=== PATIENT | female | born 1990 | race American Indian/Alaskan Native ===

== ENCOUNTER 2017-01-08 18:03 | Inpatient (IN) | payer MEDICAID ==
--- NOTE | 2017-01-08 19:12 | EDM.PDOC ---
ED HPI GENERAL MEDICAL PROBLEM Lower Back Pain Score (Numeric/FACES): 6 <Ervin Andrew - Last Filed: 01/08/17 19:19> <Juan Elias - Last Filed: 01/08/17 22:05> - General Chief Complaint: Drug or Alcohol Abuse Stated Complaint: [facility] Time Seen by Provider: 01/08/17 18:07 - History of Present Illness INITIAL COMMENTS - FREE TEXT/NARRATIVE: 26-year-old female brought in by EMS with combative behavior and hallucinations patient is much more responsive now than she was to the second EMS crew the assisted in her delivery to the hospital. They found the patient hyperventilating somewhat not responsive Selene Coma Score of on her and found to be 10 she was given a milligram of Ativan in albeit was somewhat sleepy did become more responsive and more communicative and according to EMS at the time of arrival to the emergency room is more talkative than she has been the entire trip here. Transport was started by the [facility] and then intercepted with [facility]. Patient admits to taking 5 Percocet around 3:00 this afternoon and then snorting some cocaine she denies any suicidal wishes or thoughts at this point however is having some auditory hallucinations (Ervin Andrew) - Related Data Allergies Allergy/AdvReac Type Severity Reaction Status Date / Time No Known Allergies Allergy Verified 01/08/17 18:09 Home Meds: Home Meds Vit No.130/Iron/FA [ Tablet] 1 each PO DAILY 07/18/15 [History] Acetaminophen/oxyCODONE [Percocet 325-5 MG] 2 tab PO Q4H PRN #30 tablet [Rx] Docusate Sodium [Colace] 100 mg PO Q12H PRN #30 cap 07/20/15 [Rx] Ferrous Sulfate 325 mg PO BRK tablet 07/20/15 [Rx] Ibuprofen [Motrin] 600 mg PO Q4H PRN #30 tablet 07/20/15 [Rx] Past Medical History Other Genitourinary History: UTI 2 weeks ago. Treated with antibiotics. [employer] History: Reports: Other OB/BYN History: x4 <Ervin Andrew - Last Filed: 01/08/17 19:19> Social & Family History - Tobacco Use Smoking Status *Q: Current Every Day Smoker Years of Tobacco use: 15 Packs/Tins Daily: 1 - Caffeine Use Caffeine Use: Reports: Energy Drinks, Soda - Alcohol Use Days Per Week of Alcohol Use: 7 Number of Drinks Per Day: 3 Total Drinks Per Week: 21 - Recreational Drug Use Recreational Drug Use: Yes Drug Use in Last 12 Months: Yes Recreational Drug Type: Reports: Marijuana/Hashish, Methamphetamine, Oxycodone Other Recreational Drug Type: states "Whatever is around" Recreational Drug Use Frequency: Daily <Ervin Andrew - Last Filed: 01/08/17 19:19> ED ROS GENERAL - Review of Systems Review Of Systems: See Below Constitutional: Denies: Fever, Chills HEENT: Reports: No Symptoms Respiratory: Reports: No Symptoms Cardiovascular: Reports: No Symptoms GI/Abdominal: Reports: No Symptoms : Reports: No Symptoms Musculoskeletal: Reports: No Symptoms <Ervin Andrew - Last Filed: 01/08/17 19:19> - Physical Exam Exam: See Below Exam Limited By: Other (the extent of her drug effect is unclear at this time) General Appearance: Alert, No Apparent Distress, Other (she is hearing voices otherwise is cooperative train of thought is a little jumbled.) Eye Exam: Bilateral Eye: EOMI, Normal Inspection, PERRL (she is perhaps a little sluggish) Ears: Normal External Exam, Normal Canal, Hearing Grossly Normal, Normal TMs Nose: Normal Inspection, Normal Mucosa, No Blood Throat/Mouth: Normal Inspection, Normal Lips, Normal Oropharynx, No Airway Compromise Head Exam: Atraumatic, Normocephalic Neck: Normal Inspection, Supple, Non-Tender, Full Range of Motion. No: Lymphadenopathy (L), Lymphadenopathy (R) Respiratory/Chest: No Respiratory Distress, Lungs Clear, Normal Breath Sounds Cardiovascular: Regular Rate, Rhythm, No Edema, No Murmur GI/Abdominal: Normal Bowel Sounds, Soft, Non-Tender, No Organomegaly, No Distention, No Abnormal Bruit, No Mass Neuro Exam (Abbreviated): Alert, CN II-XII Intact. No: Normal Cognition, Sensory/Motor Deficit Back Exam: Normal Inspection. No: CVA Tenderness (L), CVA Tenderness (R) Extremities: Normal Inspection, No Pedal Edema Psychiatric: Other (patient denies suicidal thoughts or wishes she is still under the effect of some drugs) <Ervin Andrew - Last Filed: 01/08/17 19:19> EKG INTERPRETATION EKG Date: 01/08/17 Time: 18:06 Rhythm: NSR Rate (beats/min): 92 [place]: normal P-wave: present QRS: normal ST-T: normal QT: normal Comparison: NA - no prior EKG <Juan Elias - Last Filed: 01/08/17 22:05> Course <Ervin Andrew - Last Filed: 01/08/17 19:19> <Juan Elias - Last Filed: 01/08/17 22:05> - Vital Signs Last Recorded V/S: Last Vital Signs Temp 37.2 C 01/08/17 18:05 Pulse 88 01/08/17 18:05 Resp 18 01/08/17 18:05 BP Pulse Ox 98 01/08/17 18:05 (Ervin Andrew) (Juan Elias) - Orders/Labs/Meds Orders: Active Orders 24 hr Category Date Time Status EKG 12 Lead [EKG Documentation Completion] [RC] STAT Care 01/08/17 18:05 Active (Ervin Andrew) (Juan Elias) Labs: Laboratory Tests 01/08/17 01/08/17 01/08/17 Range/Units 18:10 18:10 18:10 WBC 8.46 (3.98-10.04) K/mm3 RBC 4.61 (3.98-5.22) M/mm3 Hgb 12.7 (11.2-15.7) gm/L Hct 38.0 (34.1-44.9) % MCV 82.4 (79.4-94.8) fl MCH 27.5 (25.6-32.2) pg MCHC 33.4 (32.2-35.5) g/dl RDW Std Deviation 47.2 H (36.4-46.3) fL Plt Count 187 (182-369) K/mm3 MPV 12.4 H (9.4-12.3) fl Neutrophils % (Manual) 72 H (40-60) % Band Neutrophils % 0 (0-10) % Lymphocytes % (Manual) 23 (20-40) % Atypical Lymphs % 0 % Monocytes % (Manual) 5 (2-10) % Eosinophils % (Manual) 0 L (0.7-5.8) % Basophils % (Manual) 0 L (0.1-1.2) Platelet Estimate Adequate Plt Morphology Comment Normal RBC Morph Comment Normal Puncture Site ABG pH (7.35-7.45) ABG pCO2 (35.0-45.0) mmHg ABG pO2 (80.0-100.0) mmHg ABG HCO3 (22.0-26.0) meq/L ABG O2 Saturation (96.0-97.0) % ABG Base Excess (-2-2.0) Alvaro Test A-a Gradient mmHg FiO2 (21.00-100.00) % Sodium 138 (136-145) mEq/L Potassium 3.5 (3.5-5.1) mEq/L Chloride 104 (98-107) mEq/L Carbon Dioxide 21 (21-32) mEq/L Anion Gap 16.5 H (5-15) BUN 17 (7-18) mg/dL Creatinine 0.8 (0.55-1.02) mg/dL Est Cr Clr Drug Dosing 94.21 mL/min Estimated GFR (MDRD) > 60 (>60) mL/min BUN/Creatinine Ratio 21.3 H (14-18) Glucose 120 H (74-106) mg/dL Calcium 9.3 (8.5-10.1) mg/dL Total Bilirubin 1.0 (0.2-1.0) mg/dL AST 64 H (15-37) U/L ALT 110 H (14-59) U/L Alkaline Phosphatase 93 (46-116) U/L Total Protein 8.2 (6.4-8.2) g/dl Albumin 4.2 (3.4-5.0) g/dl Globulin 4.0 gm/dL Albumin/Globulin Ratio 1.1 (1-2) TSH 3rd Generation 0.841 (0.358-3.74) uIU/mL Urine Color (Yellow) Urine Appearance (Clear) Urine pH (5.0-8.0) Ur Specific [place] (1.005-1.030) Urine Protein (Negative) Urine Glucose (UA) (Negative) Urine Ketones (Negative) Urine Occult Blood (Negative) Urine Nitrite (Negative) Urine Bilirubin (Negative) Urine Urobilinogen (0.2-1.0) Ur Leukocyte Esterase (Negative) Urine RBC (0-5) /hpf Urine WBC (0-5) /hpf Ur Epithelial Cells Ur Squamous Epith Cells (0-5) /hpf Urine Bacteria (FEW) /hpf Urine Mucus (FEW) /hpf Urine Trichomonas Urine HCG, Qual (NEGATIVE) Salicylates 1.3 L (2.8-20) mg/dL Urine Opiates Screen (NEGATIVE) Ur Buprenorphine Scrn (NEGATIVE) Ur Oxycodone Screen (NEGATIVE) Urine Methadone Screen (NEGATIVE) Ur Propoxyphene Screen (NEGATIVE) Acetaminophen 0 L (10-30) ug/mL Ur Barbiturates Screen (NEGATIVE) Ur Tricyclics Screen (NEGATIVE) Ur Phencyclidine Scrn (NEGATIVE) Ur Amphetamine Screen (NEGATIVE) U Methamphetamines Scrn (NEGATIVE) U Benzodiazepines Scrn (NEGATIVE) U Cocaine Metab Screen (NEGATIVE) U Marijuana (THC) Screen (NEGATIVE) Ethyl Alcohol 0.00 (0.00) gm% 01/08/17 01/08/17 01/08/17 Range/Units 18:45 18:45 18:45 WBC (3.98-10.04) K/mm3 RBC (3.98-5.22) M/mm3 Hgb (11.2-15.7) gm/L Hct (34.1-44.9) % MCV (79.4-94.8) fl MCH (25.6-32.2) pg MCHC (32.2-35.5) g/dl RDW Std Deviation (36.4-46.3) fL Plt Count (182-369) K/mm3 MPV (9.4-12.3) fl Neutrophils % (Manual) (40-60) % Band Neutrophils % (0-10) % Lymphocytes % (Manual) (20-40) % Atypical Lymphs % % Monocytes % (Manual) (2-10) % Eosinophils % (Manual) (0.7-5.8) % Basophils % (Manual) (0.1-1.2) Platelet Estimate Plt Morphology Comment RBC Morph Comment Puncture Site ABG pH (7.35-7.45) ABG pCO2 (35.0-45.0) mmHg ABG pO2 (80.0-100.0) mmHg ABG HCO3 (22.0-26.0) meq/L ABG O2 Saturation (96.0-97.0) % ABG Base Excess (-2-2.0) Alvaro Test A-a Gradient mmHg FiO2 (21.00-100.00) % Sodium (136-145) mEq/L Potassium (3.5-5.1) mEq/L Chloride (98-107) mEq/L Carbon Dioxide (21-32) mEq/L Anion Gap (5-15) BUN (7-18) mg/dL Creatinine (0.55-1.02) mg/dL Est Cr Clr Drug Dosing mL/min Estimated GFR (MDRD) (>60) mL/min BUN/Creatinine Ratio (14-18) Glucose (74-106) mg/dL Calcium (8.5-10.1) mg/dL Total Bilirubin (0.2-1.0) mg/dL AST (15-37) U/L ALT (14-59) U/L Alkaline Phosphatase (46-116) U/L Total Protein (6.4-8.2) g/dl Albumin (3.4-5.0) g/dl Globulin gm/dL Albumin/Globulin Ratio (1-2) TSH 3rd Generation (0.358-3.74) uIU/mL Urine Color Yellow (Yellow) Urine Appearance Slt cloudy H (Clear) Urine pH 6.0 (5.0-8.0) Ur Specific [place] 1.025 (1.005-1.030) Urine Protein 1+ H (Negative) Urine Glucose (UA) Negative (Negative) Urine Ketones 2+ H (Negative) Urine Occult Blood 2+ H (Negative) Urine Nitrite Negative (Negative) Urine Bilirubin Negative (Negative) Urine Urobilinogen 0.2 (0.2-1.0) Ur Leukocyte Esterase Trace H (Negative) Urine RBC 40-50 H (0-5) /hpf Urine WBC 5-10 H (0-5) /hpf Ur Epithelial Cells Not Reportable Ur Squamous Epith Cells 10-20 H (0-5) /hpf Urine Bacteria Moderate H (FEW) /hpf Urine Mucus Few (FEW) /hpf Urine Trichomonas Few Urine HCG, Qual Negative (NEGATIVE) Salicylates (2.8-20) mg/dL Urine Opiates Screen Negative (NEGATIVE) Ur Buprenorphine Scrn Negative (NEGATIVE) Ur Oxycodone Screen Negative (NEGATIVE) Urine Methadone Screen Negative (NEGATIVE) Ur Propoxyphene Screen Negative (NEGATIVE) Acetaminophen (10-30) ug/mL Ur Barbiturates Screen Negative (NEGATIVE) Ur Tricyclics Screen Negative (NEGATIVE) Ur Phencyclidine Scrn Negative (NEGATIVE) Ur Amphetamine Screen Presumptive positive H (NEGATIVE) U Methamphetamines Scrn Presumptive positive H (NEGATIVE) U Benzodiazepines Scrn Negative (NEGATIVE) U Cocaine Metab Screen Negative (NEGATIVE) U Marijuana (THC) Screen Presumptive positive H (NEGATIVE) Ethyl Alcohol (0.00) gm% 01/08/17 Range/Units 18:54 WBC (3.98-10.04) K/mm3 RBC (3.98-5.22) M/mm3 Hgb (11.2-15.7) gm/L Hct (34.1-44.9) % MCV (79.4-94.8) fl MCH (25.6-32.2) pg MCHC (32.2-35.5) g/dl RDW Std Deviation (36.4-46.3) fL Plt Count (182-369) K/mm3 MPV (9.4-12.3) fl Neutrophils % (Manual) (40-60) % Band Neutrophils % (0-10) % Lymphocytes % (Manual) (20-40) % Atypical Lymphs % % Monocytes % (Manual) (2-10) % Eosinophils % (Manual) (0.7-5.8) % Basophils % (Manual) (0.1-1.2) Platelet Estimate Plt Morphology Comment RBC Morph Comment Puncture Site Rt radial ABG pH 7.42 (7.35-7.45) ABG pCO2 32.2 L (35.0-45.0) mmHg ABG pO2 81.0 (80.0-100.0) mmHg ABG HCO3 20.3 L (22.0-26.0) meq/L ABG O2 Saturation 97.7 H (96.0-97.0) % ABG Base Excess -2.9 L (-2-2.0) Alvaro Test Positive A-a Gradient 13 mmHg FiO2 21.00 (21.00-100.00) % Sodium (136-145) mEq/L Potassium (3.5-5.1) mEq/L Chloride (98-107) mEq/L Carbon Dioxide (21-32) mEq/L Anion Gap (5-15) BUN (7-18) mg/dL Creatinine (0.55-1.02) mg/dL Est Cr Clr Drug Dosing mL/min Estimated GFR (MDRD) (>60) mL/min BUN/Creatinine Ratio (14-18) Glucose (74-106) mg/dL Calcium (8.5-10.1) mg/dL Total Bilirubin (0.2-1.0) mg/dL AST (15-37) U/L ALT (14-59) U/L Alkaline Phosphatase (46-116) U/L Total Protein (6.4-8.2) g/dl Albumin (3.4-5.0) g/dl Globulin gm/dL Albumin/Globulin Ratio (1-2) TSH 3rd Generation (0.358-3.74) uIU/mL Urine Color (Yellow) Urine Appearance (Clear) Urine pH (5.0-8.0) Ur Specific [place] (1.005-1.030) Urine Protein (Negative) Urine Glucose (UA) (Negative) Urine Ketones (Negative) Urine Occult Blood (Negative) Urine Nitrite (Negative) Urine Bilirubin (Negative) Urine Urobilinogen (0.2-1.0) Ur Leukocyte Esterase (Negative) Urine RBC (0-5) /hpf Urine WBC (0-5) /hpf Ur Epithelial Cells Ur Squamous Epith Cells (0-5) /hpf Urine Bacteria (FEW) /hpf Urine Mucus (FEW) /hpf Urine Trichomonas Urine HCG, Qual (NEGATIVE) Salicylates (2.8-20) mg/dL Urine Opiates Screen (NEGATIVE) Ur Buprenorphine Scrn (NEGATIVE) Ur Oxycodone Screen (NEGATIVE) Urine Methadone Screen (NEGATIVE) Ur Propoxyphene Screen (NEGATIVE) Acetaminophen (10-30) ug/mL Ur Barbiturates Screen (NEGATIVE) Ur Tricyclics Screen (NEGATIVE) Ur Phencyclidine Scrn (NEGATIVE) Ur Amphetamine Screen (NEGATIVE) U Methamphetamines Scrn (NEGATIVE) U Benzodiazepines Scrn (NEGATIVE) U Cocaine Metab Screen (NEGATIVE) U Marijuana (THC) Screen (NEGATIVE) Ethyl Alcohol (0.00) gm% (Ervin Andrew) (Juan Elias) - Radiology Interpretation Free Text/Narrative:: CT of the head without contrast is read by Dr. Haywood as: 1. Nothing acute is identified on noncontrast head CT study. (Juan Elias) - Re-Assessments/Exams Free Text/Narrative Re-Assessment/Exam: 01/08/17 19:19 labs ordered work up initiated at this point it is change of shift further evaluation and disposition per Dr. Elias (Ervin Andrew) Free Text/Narrative Re-Assessment/Exam: 01/08/17 21:05 I evaluated the patient. She is calm, lucid, and able to provide a meaningful history, however, is still hearing her father and some other family members argue in the room next door when, in fact, they are not here. She states that she snorted one Percocet and smoked one Percocet yesterday, then smoked two Percocets and injected methamphetamine around 13:00 today. She admits that she sometimes snorts methamphetamine as well, but not today. I believe it is most likely that the patient has auditory hallucinations because of the methamphetamine, not psychosis, and I would expect that her hallucinations will have resolved by the morning. I don't believe she is fit to discharge home at this time - I am recommending observation overnight, then a visit by pediatric social worker in the morning, as they may be able to facilitate getting the patient into either inpatient or outpatient drug treatment. 01/08/17 21:[address] Burden at 21:30. Provided we have the staffing to watch the patient, he agrees to place the patient observation. (Juan Elias) Departure <Ervin Andrew - Last Filed: 01/08/17 19:19> - Departure Time of Disposition: 21:59 Condition: fair <Juan Elias - Last Filed: 01/08/17 22:05> - Departure Disposition: Refer to Observation Clinical Impression: Methamphetamine abuse, Opioid abuse, Polysubstance abuse, Verbal auditory hallucinations
[2017-01-08 19:44] LABS: ACETAMINOPHEN 0 ug/mL (10-30)
--- NOTE | 2017-01-08 19:57 | CT ---
Head CT Technique: Multiple axial sections through the brain were obtained. Intravenous contrast was not utilized. Comparison: No previous intracranial imaging is available. Findings: Ventricles along with basal cisterns and sulci over the convexities are within normal limits for the patient's age. No abnormal parenchymal densities are seen. No evidence of intracranial hemorrhage. No midline shift or mass effect is seen. Bone window settings shows no acute calvarial abnormality. Visualized sinuses are clear. Impression: 1. Nothing acute is identified on noncontrast head CT study. Diagnostic code #1
--- NOTE | 2017-01-08 21:52 | PCM.HP ---
H&P History of Present Illness - General Date of Service: 01/08/17 Admit Problem/Dx: Auditory Hallucinations and Substance Abuse Source of Information: Patient, Old Records, Provider, RN Notes Reviewed History Limitations: Reports: Altered Mental Status - History of Present Illness Initial Comments - Free Text/Narative: This is a 26 yo female with no significant past medical hx/o who comes in for evaluation of combative behavior and hallucinations. Patient carries a hx/o chronic substance abuse with methamphetamine and Marijuana. En route to ED, she was given ativan by EMS and she became more responsive and talkative per ED notes. Patient admits to taking percocet and snorting cocaine. Her initial ED work up shows an unremarkable CBC. Her chemistry is significant of AG 16.5, BS 120, AST 64, and ALT 110. UA is not impressive to suggest UTI. She is negative for screening. Her UDS is pos for Amphethamine/ Methamphetamine and THC. Her BRYSON level is 0. Head CT scan shows no acute abnormal findings. Patient is being admitted for Hallucinations and Substance Abuse. Lower Back Pain Score (Numeric/FACES): 6 - Related Data Allergies/Adverse Reactions: Allergies Allergy/AdvReac Type Severity Reaction Status Date / Time No Known Allergies Allergy Verified 01/08/17 18:09 Home Medications: Home Meds Vit No.130/Iron/FA [ Tablet] 1 each PO DAILY 07/18/15 [History] Acetaminophen/oxyCODONE [Percocet 325-5 MG] 2 tab PO Q4H PRN #30 tablet [Rx] Docusate Sodium [Colace] 100 mg PO Q12H PRN #30 cap 07/20/15 [Rx] Ferrous Sulfate 325 mg PO BRK tablet 07/20/15 [Rx] Ibuprofen [Motrin] 600 mg PO Q4H PRN #30 tablet 07/20/15 [Rx] Past Medical History Other Genitourinary History: UTI 2 weeks ago. Treated with antibiotics. 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: Other OB/BYN History: x4 Social & Family History - Tobacco Use Smoking Status *Q: Current Every Day Smoker Years of Tobacco use: 15 Packs/Tins Daily: 1 - Caffeine Use Caffeine Use: Reports: Energy Drinks, Soda - Alcohol Use Days Per Week of Alcohol Use: 7 Number of Drinks Per Day: 3 Total Drinks Per Week: 21 - Recreational Drug Use Recreational Drug Use: Yes Drug Use in Last 12 Months: Yes Recreational Drug Type: Reports: Marijuana/Hashish, Methamphetamine, Oxycodone Other Recreational Drug Type: states "Whatever is around" Recreational Drug Use Frequency: Daily H&P Review of Systems - Review of Systems: Review Of Systems: See Below General: Denies: Fever, Chills, Malaise, Weakness, Fatigue HEENT: Reports: No Symptoms Pulmonary: Denies: Shortness of Breath, Wheezing, Pleuritic Chest Pain, Sputum Cardiovascular: Denies: Chest Pain, Palpitations, Dyspnea on Exertion Gastrointestinal: Denies: Abdominal Pain, Nausea Genitourinary: Reports: No Symptoms Musculoskeletal: Reports: No Symptoms Skin: Denies: Cyanosis, Jaundice, Pruritis, Rash, Wound Psychiatric: Reports: Confusion, Suicidal Ideation, Hallucinations (Auditory) Neurological: Denies: Dizziness, Gait Disturbance Hematologic/Lymphatic: Reports: No Symptoms Immunologic: Reports: No Symptoms Exam - Exam Exam: See Below - Vital Signs Vital Signs: Last Vital Signs Temp 37.2 C 01/08/17 18:05 Pulse 88 01/08/17 18:05 Resp 18 01/08/17 18:05 BP Pulse Ox 98 01/08/17 18:05 Weight: 75.75 kg - Exam General: Alert, Cooperative HEENT: Conjunctiva Clear, EACs Clear, EOMI, Hearing Intact, Mucosa Moist & Hines , Nares Patent, Posterior Pharynx Clear, Pupils Equal Neck: Supple, Trachea Midline, Carotid Bruit Lungs: Clear to Auscultation Cardiovascular: Regular Rate, Regular Rhythm Abdomen: Normal Bowel Sounds, Soft. No: Organomegaly, Tenderness (Female) Exam: Deferred Rectal (Female) Exam: Deferred Back Exam: Normal Inspection, Decreased Range of Motion Extremities: Normal Inspection, Normal Pulses Peripheral Pulses: 3+: Posterior Tibial (L), Posterior Tibial (R), Dorsalis Pedis (L), Dorsalis Pedis (R) Skin: Warm, Dry, Intact Neuro Extensive - Mental Status: Oriented x3, Normal Cognition, Memory Intact Neuro Extensive - Motor, Sensory, Reflexes: CN II-XII Intact, Normal Gait Psychiatric: Alert, Normal Affect, Anxious, Hallucinations (hearing voices ) - Patient Data Lab Results last 24 hrs: Laboratory Results - last 24 hr 05/01/08/17 01/08/17 Range/Units 18:10 18:10 18:10 WBC 8.46 (3.98-10.04) K/mm3 RBC 4.61 (3.98-5.22) M/mm3 Hgb 12.7 (11.2-15.7) gm/L Hct 38.0 (34.1-44.9) % MCV 82.4 (79.4-94.8) fl MCH 27.5 (25.6-32.2) pg MCHC 33.4 (32.2-35.5) g/dl RDW Std Deviation 47.2 H (36.4-46.3) fL Plt Count 187 (182-369) K/mm3 MPV 12.4 H (9.4-12.3) fl Neutrophils % (Manual) 72 H (40-60) % Band Neutrophils % 0 (0-10) % Lymphocytes % (Manual) 23 (20-40) % Atypical Lymphs % 0 % Monocytes % (Manual) 5 (2-10) % Eosinophils % (Manual) 0 L (0.7-5.8) % Basophils % (Manual) 0 L (0.1-1.2) Platelet Estimate Adequate Plt Morphology Comment Normal RBC Morph Comment Normal Puncture Site ABG pH (7.35-7.45) ABG pCO2 (35.0-45.0) mmHg ABG pO2 (80.0-100.0) mmHg ABG HCO3 (22.0-26.0) meq/L ABG O2 Saturation (96.0-97.0) % ABG Base Excess (-2-2.0) Alvaro Test A-a Gradient mmHg FiO2 (21.00-100.00) % Sodium 138 (136-145) mEq/L Potassium 3.5 (3.5-5.1) mEq/L Chloride 104 (98-107) mEq/L Carbon Dioxide 21 (21-32) mEq/L Anion Gap 16.5 H (5-15) BUN 17 (7-18) mg/dL Creatinine 0.8 (0.55-1.02) mg/dL Est Cr Clr Drug Dosing 94.21 mL/min Estimated GFR (MDRD) > 60 (>60) mL/min BUN/Creatinine Ratio 21.3 H (14-18) Glucose 120 H (74-106) mg/dL Calcium 9.3 (8.5-10.1) mg/dL Total Bilirubin 1.0 (0.2-1.0) mg/dL AST 64 H (15-37) U/L ALT 110 H (14-59) U/L Alkaline Phosphatase 93 (46-116) U/L Total Protein 8.2 (6.4-8.2) g/dl Albumin 4.2 (3.4-5.0) g/dl Globulin 4.0 gm/dL Albumin/Globulin Ratio 1.1 (1-2) TSH 3rd Generation 0.841 (0.358-3.74) uIU/mL Urine Color (Yellow) Urine Appearance (Clear) Urine pH (5.0-8.0) Ur Specific [place] (1.005-1.030) Urine Protein (Negative) Urine Glucose (UA) (Negative) Urine Ketones (Negative) Urine Occult Blood (Negative) Urine Nitrite (Negative) Urine Bilirubin (Negative) Urine Urobilinogen (0.2-1.0) Ur Leukocyte Esterase (Negative) Urine RBC (0-5) /hpf Urine WBC (0-5) /hpf Ur Epithelial Cells Ur Squamous Epith Cells (0-5) /hpf Urine Bacteria (FEW) /hpf Urine Mucus (FEW) /hpf Urine Trichomonas Urine HCG, Qual (NEGATIVE) Salicylates 1.3 L (2.8-20) mg/dL Urine Opiates Screen (NEGATIVE) Ur Buprenorphine Scrn (NEGATIVE) Ur Oxycodone Screen (NEGATIVE) Urine Methadone Screen (NEGATIVE) Ur Propoxyphene Screen (NEGATIVE) Acetaminophen 0 L (10-30) ug/mL Ur Barbiturates Screen (NEGATIVE) Ur Tricyclics Screen (NEGATIVE) Ur Phencyclidine Scrn (NEGATIVE) Ur Amphetamine Screen (NEGATIVE) U Methamphetamines Scrn (NEGATIVE) U Benzodiazepines Scrn (NEGATIVE) U Cocaine Metab Screen (NEGATIVE) U Marijuana (THC) Screen (NEGATIVE) Ethyl Alcohol 0.00 (0.00) gm% 01/08/17 01/08/17 01/08/17 Range/Units 18:45 18:45 18:45 WBC (3.98-10.04) K/mm3 RBC (3.98-5.22) M/mm3 Hgb (11.2-15.7) gm/L Hct (34.1-44.9) % MCV (79.4-94.8) fl MCH (25.6-32.2) pg MCHC (32.2-35.5) g/dl RDW Std Deviation (36.4-46.3) fL Plt Count (182-369) K/mm3 MPV (9.4-12.3) fl Neutrophils % (Manual) (40-60) % Band Neutrophils % (0-10) % Lymphocytes % (Manual) (20-40) % Atypical Lymphs % % Monocytes % (Manual) (2-10) % Eosinophils % (Manual) (0.7-5.8) % Basophils % (Manual) (0.1-1.2) Platelet Estimate Plt Morphology Comment RBC Morph Comment Puncture Site ABG pH (7.35-7.45) ABG pCO2 (35.0-45.0) mmHg ABG pO2 (80.0-100.0) mmHg ABG HCO3 (22.0-26.0) meq/L ABG O2 Saturation (96.0-97.0) % ABG Base Excess (-2-2.0) Alvaro Test A-a Gradient mmHg FiO2 (21.00-100.00) % Sodium (136-145) mEq/L Potassium (3.5-5.1) mEq/L Chloride (98-107) mEq/L Carbon Dioxide (21-32) mEq/L Anion Gap (5-15) BUN (7-18) mg/dL Creatinine (0.55-1.02) mg/dL Est Cr Clr Drug Dosing mL/min Estimated GFR (MDRD) (>60) mL/min BUN/Creatinine Ratio (14-18) Glucose (74-106) mg/dL Calcium (8.5-10.1) mg/dL Total Bilirubin (0.2-1.0) mg/dL AST (15-37) U/L ALT (14-59) U/L Alkaline Phosphatase (46-116) U/L Total Protein (6.4-8.2) g/dl Albumin (3.4-5.0) g/dl Globulin gm/dL Albumin/Globulin Ratio (1-2) TSH 3rd Generation (0.358-3.74) uIU/mL Urine Color Yellow (Yellow) Urine Appearance Slt cloudy H (Clear) Urine pH 6.0 (5.0-8.0) Ur Specific [place] 1.025 (1.005-1.030) Urine Protein 1+ H (Negative) Urine Glucose (UA) Negative (Negative) Urine Ketones 2+ H (Negative) Urine Occult Blood 2+ H (Negative) Urine Nitrite Negative (Negative) Urine Bilirubin Negative (Negative) Urine Urobilinogen 0.2 (0.2-1.0) Ur Leukocyte Esterase Trace H (Negative) Urine RBC 40-50 H (0-5) /hpf Urine WBC 5-10 H (0-5) /hpf Ur Epithelial Cells Not Reportable Ur Squamous Epith Cells 10-20 H (0-5) /hpf Urine Bacteria Moderate H (FEW) /hpf Urine Mucus Few (FEW) /hpf Urine Trichomonas Few Urine HCG, Qual Negative (NEGATIVE) Salicylates (2.8-20) mg/dL Urine Opiates Screen Negative (NEGATIVE) Ur Buprenorphine Scrn Negative (NEGATIVE) Ur Oxycodone Screen Negative (NEGATIVE) Urine Methadone Screen Negative (NEGATIVE) Ur Propoxyphene Screen Negative (NEGATIVE) Acetaminophen (10-30) ug/mL Ur Barbiturates Screen Negative (NEGATIVE) Ur Tricyclics Screen Negative (NEGATIVE) Ur Phencyclidine Scrn Negative (NEGATIVE) Ur Amphetamine Screen Presumptive positive H (NEGATIVE) U Methamphetamines Scrn Presumptive positive H (NEGATIVE) U Benzodiazepines Scrn Negative (NEGATIVE) U Cocaine Metab Screen Negative (NEGATIVE) U Marijuana (THC) Screen Presumptive positive H (NEGATIVE) Ethyl Alcohol (0.00) gm% 01/08/17 Range/Units 18:54 WBC (3.98-10.04) K/mm3 RBC (3.98-5.22) M/mm3 Hgb (11.2-15.7) gm/L Hct (34.1-44.9) % MCV (79.4-94.8) fl MCH (25.6-32.2) pg MCHC (32.2-35.5) g/dl RDW Std Deviation (36.4-46.3) fL Plt Count (182-369) K/mm3 MPV (9.4-12.3) fl Neutrophils % (Manual) (40-60) % Band Neutrophils % (0-10) % Lymphocytes % (Manual) (20-40) % Atypical Lymphs % % Monocytes % (Manual) (2-10) % Eosinophils % (Manual) (0.7-5.8) % Basophils % (Manual) (0.1-1.2) Platelet Estimate Plt Morphology Comment RBC Morph Comment Puncture Site Rt radial ABG pH 7.42 (7.35-7.45) ABG pCO2 32.2 L (35.0-45.0) mmHg ABG pO2 81.0 (80.0-100.0) mmHg ABG HCO3 20.3 L (22.0-26.0) meq/L ABG O2 Saturation 97.7 H (96.0-97.0) % ABG Base Excess -2.9 L (-2-2.0) Alvaro Test Positive A-a Gradient 13 mmHg FiO2 21.00 (21.00-100.00) % Sodium (136-145) mEq/L Potassium (3.5-5.1) mEq/L Chloride (98-107) mEq/L Carbon Dioxide (21-32) mEq/L Anion Gap (5-15) BUN (7-18) mg/dL Creatinine (0.55-1.02) mg/dL Est Cr Clr Drug Dosing mL/min Estimated GFR (MDRD) (>60) mL/min BUN/Creatinine Ratio (14-18) Glucose (74-106) mg/dL Calcium (8.5-10.1) mg/dL Total Bilirubin (0.2-1.0) mg/dL AST (15-37) U/L ALT (14-59) U/L Alkaline Phosphatase (46-116) U/L Total Protein (6.4-8.2) g/dl Albumin (3.4-5.0) g/dl Globulin gm/dL Albumin/Globulin Ratio (1-2) TSH 3rd Generation (0.358-3.74) uIU/mL Urine Color (Yellow) Urine Appearance (Clear) Urine pH (5.0-8.0) Ur Specific [place] (1.005-1.030) Urine Protein (Negative) Urine Glucose (UA) (Negative) Urine Ketones (Negative) Urine Occult Blood (Negative) Urine Nitrite (Negative) Urine Bilirubin (Negative) Urine Urobilinogen (0.2-1.0) Ur Leukocyte Esterase (Negative) Urine RBC (0-5) /hpf Urine WBC (0-5) /hpf Ur Epithelial Cells Ur Squamous Epith Cells (0-5) /hpf Urine Bacteria (FEW) /hpf Urine Mucus (FEW) /hpf Urine Trichomonas Urine HCG, Qual (NEGATIVE) Salicylates (2.8-20) mg/dL Urine Opiates Screen (NEGATIVE) Ur Buprenorphine Scrn (NEGATIVE) Ur Oxycodone Screen (NEGATIVE) Urine Methadone Screen (NEGATIVE) Ur Propoxyphene Screen (NEGATIVE) Acetaminophen (10-30) ug/mL Ur Barbiturates Screen (NEGATIVE) Ur Tricyclics Screen (NEGATIVE) Ur Phencyclidine Scrn (NEGATIVE) Ur Amphetamine Screen (NEGATIVE) U Methamphetamines Scrn (NEGATIVE) U Benzodiazepines Scrn (NEGATIVE) U Cocaine Metab Screen (NEGATIVE) U Marijuana (THC) Screen (NEGATIVE) Ethyl Alcohol (0.00) gm% Result Diagrams: 01/10/17 04:45 01/10/17 04:45 EKG INTERPRETATION EKG Date: 01/08/17 Time: 06:06 Rhythm: other (Sinus Rhythm) QT: prolonged Comparison: NA - no prior EKG *Q Meaningful Use (ADM) - VTE *Q VTE Criteria *Q: - Stroke *Q Stroke Criteria *Q: - AMI *Q AMI Criteria *Q: Problem List Initiated/Reviewed/Updated: Yes Orders Last 24hrs: Active Orders 24 hr Category Date Time Status EKG 12 Lead [EKG Documentation Completion] [RC] STAT Care 01/08/17 18:05 Active Assessment/Plan Comment:: Acute: Suicidal Ideation - Has been suicidal since October of this year - Has attempted suicide by ingestion of drugs in the past - She ingest "whatever is around" - She is not homocidal - 1:1 care for suicidal risk Hallucinations - Organic vs Medication induced with Amphetamines vs ETOH - She is hearing voices and starts to bother now - Also here her dad's voice, auditory noise starts to bother her at the time of my examination - PRN Haldol - Consult Dr. Álvarez Substance Abuse - Pos for Amphetamines and THC: patient admits to it - Was never in rehab in [facility] past - Supportive Care - Consult SAC ETOH Abuse - Drinks 6 pack day +/- 1/2 pint of hard liquor: Thursday-Thursday - CIWA Protocol - PRN Ativan for abortive seizures - MVI, Folic Acid and Thiamine Nicotine Dependence - Smokes 2ppd - Nicotine patch daily Plan: Admit to ICU Supportive Care PRN Meds for symptomatic control 1:1 care: hallucinations and suicidal ideation Hold all home meds SW/CM for d/c planning SAC and Psych consult Additional orders as above
[2017-01-08] MEDS ORDERED: LORazepam 2 MG/ML MDV IV PRN (21:53)
[2017-01-08] MEDS ORDERED: Bisacodyl 5 MG Tab PO PRN (21:53)
[2017-01-08] MEDS ORDERED: Docusate Sodium 100 MG Cap PO PRN ×2 (21:53→22:02)
[2017-01-08] MEDS ORDERED: Promethazine 12.5 MG in Sodium Chloride 0.9% 50 ML IV PRN (21:53)
[2017-01-08] MEDS ORDERED: Acetaminophen 325 MG Tab PO PRN (21:53)
[2017-01-08] MEDS ORDERED: Polyethylene Glycol 3350 Powder 17 GM Packet PO PRN (21:53)
[2017-01-08] MEDS ORDERED: HYDROmorphone 0.5 MG/0.5 ML Syringe IVPUSH PRN (21:53)
[2017-01-08] MEDS ORDERED: Albuterol/Ipratropium 3.0-0.5 MG/3 ML Neb Soln NEB PRN (21:53)
[2017-01-08] MEDS ORDERED: Acetaminophen/HYDROcodone 325-5 MG Tab PO PRN (21:53)
[2017-01-08] MEDS ORDERED: Metoprolol Tartrate 5 MG/5 ML SDV IVPUSH PRN ×2 (22:08→22:13)
[2017-01-08] MEDS ORDERED: hydrALAZINE 20 MG/ML SDV IVPUSH PRN ×2 (22:08→22:13)
[2017-01-08] MEDS ORDERED: diphenhydrAMINE 50 MG/ML SDV IVPUSH ONE (22:10)
[2017-01-08] MEDS ORDERED: Sodium Chloride 0.9% 1,000 ML IV SCH (22:15)
[2017-01-08] MEDS: LORazepam 2 MG/ML MDV IVPUSH PRN (22:33)
[2017-01-08] MEDS: Ferrous Sulfate 325 MG Tab PO SCH (22:35)
[2017-01-08] MEDS ORDERED: Haloperidol Lactate 5 MG/ML SDV IM PRN (22:55)
[2017-01-08] MEDS ORDERED: chlordiazePOXIDE 25 MG Cap PO PRN (22:55)
[2017-01-08] MEDS ORDERED: Thiamine 100 MG in Sodium Chloride 0.9% 50 ML IV ONE (22:55)
[2017-01-08] MEDS ORDERED: cloNIDine 0.1 MG Tab PO PRN (22:55)
[2017-01-08] MEDS: Nicotine 21 MG/24 Hr Patch TRDERM SCH (23:56)
[2017-01-09] MEDS: Ferrous Sulfate 325 MG Tab PO SCH ×2 (08:35→12:06)
[2017-01-09] MEDS: Nicotine 21 MG/24 Hr Patch TRDERM SCH (08:59)
[2017-01-09] MEDS: Multivitamins,Therapeutic Tab PO SCH (09:01)
[2017-01-09] MEDS: Folic Acid 1 MG Tab PO SCH ×2 (09:02→12:06)
[2017-01-09] MEDS: Thiamine 100 MG Tab PO SCH ×2 (09:02→12:06)
[2017-01-09] MEDS: Famotidine 20 MG Tab PO SCH ×3 (09:02→20:01)
[2017-01-09] MEDS: Prenatal Multivitamin with Calcium/Folic Acid/Iron Tab PO SCH ×2 (09:02→12:06)
[2017-01-09] MEDS: LORazepam 2 MG/ML MDV IVPUSH PRN ×2 (14:17→21:50)
[2017-01-09] MEDS: QUEtiapine 25 MG Tab PO SCH ×2 (19:56→20:01)
[2017-01-09] MEDS ORDERED: QUEtiapine 25 MG Tab PO SCH (21:00)
--- NOTE | 2017-01-10 08:01 | PCM.PN ---
- General Info Date of Service: 01/09/17 Admission Dx/Problem (Free Text): Auditory Hallucinations and Substance Abuse Subjective Update: Follow Up Functional Status: Reports: pain controlled, tolerating diet. Denies: urinating , new symptoms - Review of Systems General: Denies: Fever, Weakness, Chills HEENT: Reports: no symptoms Pulmonary: Denies: shortness of breath Cardiovascular: Denies: Chest Pain, Palpitations Gastrointestinal: Denies: Abdominal pain, Nausea, Vomiting Genitourinary: Reports: no symptoms Musculoskeletal: Reports: no symptoms Skin: Denies: cyanosis Neurological: Denies: Confusion, Difficulty Walking, Weakness, Gait Disturbance Psychiatric: Reports: hallucinations. Denies: depression, anxiety, agitation Systems Review Comment:: She slept good. She still hears voices. Her CIWA score is mild. She has no new complaints. - Patient Data Vitals - most recent: Last Vital Signs Temp 36.2 C 01/10/17 04:00 Pulse 74 01/10/17 04:00 Resp 20 01/10/17 04:00 BP 108/53 L 01/10/17 04:00 Pulse Ox 95 01/10/17 04:00 Weight - most recent: 71.4 kg I&O - last 24 hours: Intake & Output 01/09/17 01/10/17 01/10/17 22:59 06:59 14:59 Intake Total 800 350 Output Total 750 Balance 50 350 Lab Results last 24 hrs: Laboratory Results - last 24 hr 01/10/17 01/10/17 Range/Units 04:45 04:45 WBC 6.96 (3.98-10.04) K/mm3 RBC 4.41 (3.98-5.22) M/mm3 Hgb 12.3 (11.2-15.7) gm/L Hct 38.1 (34.1-44.9) % MCV 86.4 (79.4-94.8) fl MCH 27.9 (25.6-32.2) pg MCHC 32.3 (32.2-35.5) g/dl RDW Std Deviation 50.9 H (36.4-46.3) fL Plt Count 174 L (182-369) K/mm3 MPV 12.8 H (9.4-12.3) fl Neut % (Auto) 50.8 (34.0-71.1) % Lymph % (Auto) 39.2 (19.3-51.7) % [place] % (Auto) 6.5 (4.7-12.5) % Eos % (Auto) 3.3 (0.7-5.8) Baso % (Auto) 0.1 (0.1-1.2) % Neut # (Auto) 3.53 (1.56-6.13) K/mm3 Lymph # (Auto) 2.73 (1.18-3.74) K/mm3 [place] # (Auto) 0.45 H (0.24-0.36) K/mm3 Eos # (Auto) 0.23 (0.04-0.36) K/mm3 Baso # (Auto) 0.01 (0.01-0.08) K/mm3 Sodium 141 (136-145) mEq/L Potassium 3.5 (3.5-5.1) mEq/L Chloride 108 H (98-107) mEq/L Carbon Dioxide 23 (21-32) mEq/L Anion Gap 13.5 (5-15) BUN 15 (7-18) mg/dL Creatinine 0.8 (0.55-1.02) mg/dL Est Cr Clr Drug Dosing 86.60 mL/min Estimated GFR (MDRD) > 60 (>60) mL/min BUN/Creatinine Ratio 18.8 H (14-18) Glucose 108 H (74-106) mg/dL Calcium 8.1 L (8.5-10.1) mg/dL Med Orders - Current: Current Medications Acetaminophen (Tylenol) 650 mg PO Q4H PRN PRN Reason: Pain (Mild 1-3)/fever Hydrocodone Bitart/Acetaminophen ([place] 325-5 Mg) 1 tab PO Q4H PRN PRN Reason: Pain (moderate 4-6) Albuterol/Ipratropium (Duoneb 3.0-0.5 Mg/3 Ml) 3 ml NEB Q4H PRN PRN Reason: Shortness Of Breath/wheezing Bisacodyl (Dulcolax) 5 mg PO DAILY PRN PRN Reason: Constipation Chlordiazepoxide HCl (Librium) 25 mg PO Q8H PRN PRN Reason: Withdrawal Symptoms Clonidine HCl (Catapres) 0.1 mg PO Q4H PRN PRN Reason: Agitation Docusate Sodium (Colace) 100 mg PO Q12H PRN PRN Reason: Constipation Famotidine (Pepcid) 20 mg PO Q12H [facility] [place] Last Admin: 01/09/17 20:01 Dose: Not Given Ferrous Sulfate (Ferrous Sulfate) 325 mg PO BRK [facility] [place] Last Admin: 01/09/17 12:06 Dose: 325 mg Folic Acid (Folic Acid) 1 mg PO DAILY [facility] [place] Stop: 01/11/17 09:01 Last Admin: 01/09/17 12:06 Dose: 1 mg Haloperidol Lactate (Haldol) 2 mg IM Q4H PRN PRN Reason: Psychosis Hydralazine HCl (Apresoline) 20 mg IVPUSH Q4H PRN PRN Reason: Hypertension Hydromorphone HCl (Dilaudid) 0.25 mg IVPUSH Q2H PRN PRN Reason: Pain (severe 7-10) Promethazine HCl 12.5 mg/ (Sodium Chloride) 50.5 mls @ 100 mls/hr IV Q6H PRN PRN Reason: Nausea/Vomiting Sodium Chloride (Normal Saline) 1,000 mls @ 100 mls/hr IV ASDIRECTED [facility] [place] Last Admin: 01/08/17 23:56 Dose: 100 mls/hr Lorazepam (Ativan) 2 mg IVPUSH Q4H PRN PRN Reason: Seizures Last Admin: 01/09/17 21:50 Dose: 2 mg Lorazepam (Ativan) 1 mg IVPUSH Q4H PRN; Protocol PRN Reason: Withdrawal Symptoms Last Admin: 01/09/17 14:17 Dose: 1 mg Metoprolol Tartrate (Lopressor) 5 mg IVPUSH Q4H PRN PRN Reason: Tachycardia Multivitamins (Thera) 1 each PO DAILY [facility] Last Admin: 01/09/17 09:01 Dose: Not Given Nicotine (Habitrol) 21 mg TRDERM DAILY [facility] [place] Last Admin: 01/09/17 08:59 Dose: 21 mg Ondansetron HCl (Zofran) 4 mg IV Q6H PRN PRN Reason: Nausea/Vomiting Polyethylene Glycol (Miralax) 17 gm PO DAILY PRN PRN Reason: Constipation Prenat Multivit/Ronan/Iron/Folic Ac ( Plus Iron) 1 each PO DAILY [facility] [place] Last Admin: 01/09/17 12:06 Dose: 1 each Quetiapine Fumarate (Seroquel) 25 mg PO BEDTIME [facility] Last Admin: 01/09/17 20:01 Dose: Not Given Senna/Docusate Sodium (Senna Plus) 1 tab PO BID PRN PRN Reason: Constipation Thiamine HCl (Vitamin B-1) 100 mg PO DAILY [facility] Last Admin: 01/09/17 12:06 Dose: 100 mg Discontinued Medications Diphenhydramine HCl (Benadryl) 50 mg IVPUSH ONETIME ONE Stop: 01/08/17 22:11 Last Admin: 01/08/17 22:33 Dose: 50 mg Docusate Sodium (Colace) 100 mg PO BID PRN PRN Reason: Constipation Hydralazine HCl (Apresoline) 20 mg IVPUSH Q4H PRN PRN Reason: Hypertension Thiamine HCl 100 mg/ Sodium (Chloride) 51 mls @ 100 mls/hr IV ONETIME ONE Stop: 01/08/17 23:25 Last Admin: 01/08/17 23:56 Dose: 100 mls/hr Lorazepam (Ativan) 1 mg IV Q6H PRN PRN Reason: Anxiety Metoprolol Tartrate (Lopressor) 5 mg IVPUSH Q4H PRN PRN Reason: Tachycardia Quetiapine Fumarate (Seroquel) 25 mg PO BEDTIME ANALILIA - Exam General: alert, oriented, cooperative, no acute distress HEENT: Pupils equal, Pupils reactive, EOMI, Mucous membr. moist/pink Neck: supple, trachea midline, no JVD Lungs: Clear to auscultation, Normal respiratory effort Cardiovascular: Regular Rate, Regular Rhythm Abdomen: bowel sounds present, soft, no tenderness, no distension (Female) Exam: Deferred Back Exam: Normal Inspection, Full Range of Motion Extremities: no edema, normal pulses, no tenderness/swelling, no clubbing, no cyanosis, no calf tenderness Peripheral Pulses: 3+: Dorsalis Pedis (L), Dorsalis Pedis (R) Skin: warm, dry, intact Neurological: no new focal deficit Psy/Mental Status: alert, normal affect, normal mood, hallucinations, withdrawal symptoms - Problem List Review Problem List Initiated/Reviewed/Updated: Yes - My Orders Last 24 Hours: My Active Orders 01/09/17 09:00 Famotidine [Pepcid] 20 mg PO Q12H Folic Acid 1 mg PO DAILY Multivitamins,Therapeutic [Thera] 1 each PO DAILY Thiamine [Vitamin B-1] 100 mg PO DAILY 01/09/17 14:05 LORazepam [Ativan] 1 mg IVPUSH Q4H PRN 01/09/17 16:20 AMPHET/METH EXT CONF (GCMS) Routine CARBOXY-THC BY GC/MS Routine - Plan Plan:: Acute: Suicidal Ideation - Has been suicidal since October of this year - Has attempted suicide by ingestion of drugs in the past - She ingest "whatever is around" - She is not homocidal - 1:1 care Hallucinations, Still persists - Organic vs Medication induced with Amphetamines vs ETOH - Also here her dad's voice, auditory noise starts to bother her at the time of my examination - PRN Haldol - Awaiting Dr. Álvarez input Substance Abuse - Pos for Amphetamines and THC: patient admits to it - Was never in rehab in the past - Supportive Care - Consult [facility]AC ETOH Abuse, Low CIWA score - Drinks 6 pack day +/- 1/2 pint of hard liquor: Thursday-Thursday - CIWA Protocol - PRN Ativan for abortive seizures - MVI, Folic Acid and Thiamine Nicotine Dependence - Smokes 2ppd - Nicotine patch daily Plan: She is hemodynamically stable Continue current treatment Supportive Care PRN Meds for symptomatic control 1:1 care: hallucinations and suicidal ideation SW/CM for d/c planning SAC and Psych consult Additional orders as above LOS anticipate > 96 hrs for possible chemical rehab placement
--- NOTE | 2017-01-10 08:02 | PCM.PN ---
- General Info Date of Service: 01/10/17 Admission Dx/Problem (Free Text): Auditory Hallucinations and Substance Abuse Subjective Update: Follow Up Functional Status: Reports: pain controlled, tolerating diet, ambulating, urinating, new symptoms - Review of Systems General: Denies: Fever, Weakness, Fatigue, Malaise, Chills HEENT: Reports: no symptoms Pulmonary: Denies: shortness of breath Cardiovascular: Denies: Chest Pain, Palpitations, Dyspnea on Exertion Gastrointestinal: Denies: Abdominal pain, Nausea, Vomiting Genitourinary: Reports: no symptoms Musculoskeletal: Reports: no symptoms Skin: Denies: cyanosis, rash Neurological: Denies: Confusion, Seizure, Tremors, Difficulty Walking, Gait Disturbance Psychiatric: Reports: hallucinations. Denies: confusion, anxiety, agitation Systems Review Comment:: No overnight issues. She still hears voices. She has no other new complaints. - Patient Data Vitals - most recent: Last Vital Signs Temp 36.2 C 01/10/17 04:00 Pulse 74 01/10/17 04:00 Resp 20 01/10/17 04:00 BP 108/53 L 01/10/17 04:00 Pulse Ox 95 01/10/17 04:00 Weight - most recent: 71.4 kg I&O - last 24 hours: Intake & Output 01/09/17 01/10/17 01/10/17 22:59 06:59 14:59 Intake Total 800 350 Output Total 750 Balance 50 350 Lab Results last 24 hrs: Laboratory Results - last 24 hr 01/10/17 01/10/17 Range/Units 04:45 04:45 WBC 6.96 (3.98-10.04) K/mm3 RBC 4.41 (3.98-5.22) M/mm3 Hgb 12.3 (11.2-15.7) gm/L Hct 38.1 (34.1-44.9) % MCV 86.4 (79.4-94.8) fl MCH 27.9 (25.6-32.2) pg MCHC 32.3 (32.2-35.5) g/dl RDW Std Deviation 50.9 H (36.4-46.3) fL Plt Count 174 L (182-369) K/mm3 MPV 12.8 H (9.4-12.3) fl Neut % (Auto) 50.8 (34.0-71.1) % Lymph % (Auto) 39.2 (19.3-51.7) % Greene % (Auto) 6.5 (4.7-12.5) % Eos % (Auto) 3.3 (0.7-5.8) Baso % (Auto) 0.1 (0.1-1.2) % Neut # (Auto) 3.53 (1.56-6.13) K/mm3 Lymph # (Auto) 2.73 (1.18-3.74) K/mm3 Greene # (Auto) 0.45 H (0.24-0.36) K/mm3 Eos # (Auto) 0.23 (0.04-0.36) K/mm3 Baso # (Auto) 0.01 (0.01-0.08) K/mm3 Sodium 141 (136-145) mEq/L Potassium 3.5 (3.5-5.1) mEq/L Chloride 108 H (98-107) mEq/L Carbon Dioxide 23 (21-32) mEq/L Anion Gap 13.5 (5-15) BUN 15 (7-18) mg/dL Creatinine 0.8 (0.55-1.02) mg/dL Est Cr Clr Drug Dosing 86.60 mL/min Estimated GFR (MDRD) > 60 (>60) mL/min BUN/Creatinine Ratio 18.8 H (14-18) Glucose 108 H (74-106) mg/dL Calcium 8.1 L (8.5-10.1) mg/dL Med Orders - Current: Current Medications Acetaminophen (Tylenol) 650 mg PO Q4H PRN PRN Reason: Pain (Mild 1-3)/fever Hydrocodone Bitart/Acetaminophen ([place] 325-5 Mg) 1 tab PO Q4H PRN PRN Reason: Pain (moderate 4-6) Albuterol/Ipratropium (Duoneb 3.0-0.5 Mg/3 Ml) 3 ml NEB Q4H PRN PRN Reason: Shortness Of Breath/wheezing Bisacodyl (Dulcolax) 5 mg PO DAILY PRN PRN Reason: Constipation Chlordiazepoxide HCl (Librium) 25 mg PO Q8H PRN PRN Reason: Withdrawal Symptoms Clonidine HCl (Catapres) 0.1 mg PO Q4H PRN PRN Reason: Agitation Docusate Sodium (Colace) 100 mg PO Q12H PRN PRN Reason: Constipation Famotidine (Pepcid) 20 mg PO Q12H [facility] Last Admin: 01/09/17 20:01 Dose: Not Given Ferrous Sulfate (Ferrous Sulfate) 325 mg PO BRK [facility] Last Admin: 01/09/17 12:06 Dose: 325 mg Folic Acid (Folic Acid) 1 mg PO DAILY [facility] Stop: 01/11/17 09:01 Last Admin: 01/09/17 12:06 Dose: 1 mg Haloperidol Lactate (Haldol) 2 mg IM Q4H PRN PRN Reason: Psychosis Hydralazine HCl (Apresoline) 20 mg IVPUSH Q4H PRN PRN Reason: Hypertension Hydromorphone HCl (Dilaudid) 0.25 mg IVPUSH Q2H PRN PRN Reason: Pain (severe 7-10) Promethazine HCl 12.5 mg/ (Sodium Chloride) 50.5 mls @ 100 mls/hr IV Q6H PRN PRN Reason: Nausea/Vomiting Sodium Chloride (Normal Saline) 1,000 mls @ 100 mls/hr IV ASDIRECTED [facility] Last Admin: 01/08/17 23:56 Dose: 100 mls/hr Lorazepam (Ativan) 2 mg IVPUSH Q4H PRN PRN Reason: Seizures Last Admin: 01/09/17 21:50 Dose: 2 mg Lorazepam (Ativan) 1 mg IVPUSH Q4H PRN; Protocol PRN Reason: Withdrawal Symptoms Last Admin: 01/09/17 14:17 Dose: 1 mg Metoprolol Tartrate (Lopressor) 5 mg IVPUSH Q4H PRN PRN Reason: Tachycardia Multivitamins (Thera) 1 each PO DAILY [facility] Last Admin: 01/09/17 09:01 Dose: Not Given Nicotine (Habitrol) 21 mg TRDERM DAILY [facility] Last Admin: 01/09/17 08:59 Dose: 21 mg Ondansetron HCl (Zofran) 4 mg IV Q6H PRN PRN Reason: Nausea/Vomiting Polyethylene Glycol (Miralax) 17 gm PO DAILY PRN PRN Reason: Constipation Prenat Multivit/Road Tester/Iron/Folic Ac ( Plus Iron) 1 each PO DAILY [facility] Last Admin: 01/09/17 12:06 Dose: 1 each Quetiapine Fumarate (Seroquel) 25 mg PO BEDTIME [facility] Last Admin: 01/09/17 20:01 Dose: Not Given Senna/Docusate Sodium (Senna Plus) 1 tab PO BID PRN PRN Reason: Constipation Thiamine HCl (Vitamin B-1) 100 mg PO DAILY [facility] Last Admin: 01/09/17 12:06 Dose: 100 mg Discontinued Medications Diphenhydramine HCl (Benadryl) 50 mg IVPUSH ONETIME ONE Stop: 01/08/17 22:11 Last Admin: 01/08/17 22:33 Dose: 50 mg Docusate Sodium (Colace) 100 mg PO BID PRN PRN Reason: Constipation Hydralazine HCl (Apresoline) 20 mg IVPUSH Q4H PRN PRN Reason: Hypertension Thiamine HCl 100 mg/ Sodium (Chloride) 51 mls @ 100 mls/hr IV ONETIME ONE Stop: 01/08/17 23:25 Last Admin: 01/08/17 23:56 Dose: 100 mls/hr Lorazepam (Ativan) 1 mg IV Q6H PRN PRN Reason: Anxiety Metoprolol Tartrate (Lopressor) 5 mg IVPUSH Q4H PRN PRN Reason: Tachycardia Quetiapine Fumarate (Seroquel) 25 mg PO BEDTIME [facility] - Exam General: alert, oriented, cooperative, no acute distress HEENT: Pupils equal, Pupils reactive, EOMI, Mucous membr. moist/pink Neck: supple, trachea midline, no JVD Lungs: Clear to auscultation, Normal respiratory effort Cardiovascular: Regular Rate, Regular Rhythm Abdomen: bowel sounds present, soft, no tenderness, no distension (Female) Exam: Deferred Back Exam: Normal Inspection, Full Range of Motion, Decreased Range of Motion Extremities: no edema, normal pulses, no tenderness/swelling, no clubbing, no cyanosis, no calf tenderness Peripheral Pulses: 3+: Posterior Tibial (L), Posterior Tibial (R), Dorsalis Pedis (L), Dorsalis Pedis (R) Skin: warm, dry, intact Neurological: no new focal deficit Psy/Mental Status: alert, hallucinations, withdrawal symptoms - Problem List Review Problem List Initiated/Reviewed/Updated: Yes - My Orders Last 24 Hours: My Active Orders 01/09/17 09:00 Famotidine [Pepcid] 20 mg PO Q12H Folic Acid 1 mg PO DAILY Multivitamins,Therapeutic [Thera] 1 each PO DAILY Thiamine [Vitamin B-1] 100 mg PO DAILY 01/09/17 14:05 LORazepam [Ativan] 1 mg IVPUSH Q4H PRN 01/09/17 16:20 AMPHET/METH EXT CONF (GCMS) Routine CARBOXY-THC BY GC/MS Routine - Plan Plan:: Acute: Suicidal Ideation - Has been suicidal since October of this year - Has attempted suicide by ingestion of drugs in the past - She ingest "whatever is around" - She is not homocidal - 1:1 care Hallucinations, Still persists - Organic vs Medication induced with Amphetamines vs ETOH - Also here her dad's voice, auditory noise starts to bother her at the time of my examination - PRN Haldol - Seroquel work with her at night; will change frequency to BID since she still symptomatic during the day - Awaiting Dr. Álvarez input Substance Abuse - Pos for Amphetamine/Methamphetamine and THC: patient admits to it - Was never in rehab in the past - Supportive Care - Consult [facility]: pending inpatient placement ETOH Abuse, CIWA score: 5 at is trinh - Drinks 6 pack day +/- 1/2 pint of hard liquor: Thursday-Thursday - CIWA Protocol - PRN Ativan for abortive seizures - MVI, Folic Acid and Thiamine Nicotine Dependence - Smokes 2ppd - Nicotine patch daily Plan: She remains stable She is not medically cleared yet Continue current treatment PRN Meds for symptomatic control 1:1 care: hallucinations and suicidal ideation SW/CM for d/c planning Awaiting Psych consult Additional orders as above LOS > 96 hrs chemical rehab placement
[2017-01-10] MEDS: Nicotine 21 MG/24 Hr Patch TRDERM SCH (08:20)
[2017-01-10] MEDS: Thiamine 100 MG Tab PO SCH (08:21)
[2017-01-10] MEDS: Folic Acid 1 MG Tab PO SCH (08:21)
[2017-01-10] MEDS: Multivitamins,Therapeutic Tab PO SCH (08:21)
[2017-01-10] MEDS: Famotidine 20 MG Tab PO SCH ×2 (08:21→21:43)
[2017-01-10] MEDS: Ferrous Sulfate 325 MG Tab PO SCH (08:21)
[2017-01-10] MEDS: LORazepam 2 MG/ML MDV IVPUSH PRN (12:24)
[2017-01-10] MEDS: QUEtiapine 25 MG Tab PO SCH ×2 (12:50→20:55)
[2017-01-10] MEDS ORDERED: Scopolamine 1.5 MG Transdermal Patch TRDERM PRN (18:00)
[2017-01-10] MEDS: Ondansetron 4 MG/2 ML SDV IV PRN (18:22)
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
[2017-01-10] MEDS: QUEtiapine 100 MG Tab PO SCH (21:43)
[2017-01-11] MEDS: Famotidine 20 MG Tab PO SCH ×3 (08:46→20:03)
[2017-01-11] MEDS: Ferrous Sulfate 325 MG Tab PO SCH (08:46)
[2017-01-11] MEDS: QUEtiapine 25 MG Tab PO SCH ×3 (08:46→20:03)
[2017-01-11] MEDS: Nicotine 21 MG/24 Hr Patch TRDERM SCH (08:46)
[2017-01-11] MEDS: Thiamine 100 MG Tab PO SCH (08:47)
[2017-01-11] MEDS: Sertraline 50 MG Tab PO SCH (08:47)
[2017-01-11] MEDS: Folic Acid 1 MG Tab PO SCH (08:47)
[2017-01-11] MEDS: Multivitamins,Therapeutic Tab PO SCH (08:47)
--- NOTE | 2017-01-11 10:34 | PCM.PN ---
- General Info Date of Service: 01/11/17 Functional Status: Reports: pain controlled, tolerating diet, other (Hearing voices) - Review of Systems General: Reports: No Symptoms HEENT: Reports: no symptoms Pulmonary: Reports: no symptoms Cardiovascular: Reports: No Symptoms Gastrointestinal: Reports: No symptoms Genitourinary: Reports: no symptoms Musculoskeletal: Reports: no symptoms Skin: Reports: no symptoms Neurological: Reports: No Symptoms Psychiatric: Reports: no symptoms - Patient Data Vitals - most recent: Last Vital Signs Temp 36.6 C 01/11/17 08:00 Pulse 68 01/11/17 04:00 Resp 15 01/11/17 08:00 BP 106/44 L 01/11/17 08:00 Pulse Ox 100 01/11/17 08:00 Weight - most recent: 71.4 kg I&O - last 24 hours: Intake & Output 01/10/17 01/11/17 01/11/17 22:59 06:59 14:59 Intake Total 1020 580 Balance 1020 580 Lab Results last 24 hrs: Laboratory Results - last 24 hr 01/11/17 01/11/17 Range/Units 04:33 04:33 WBC 8.35 (3.98-10.04) K/mm3 RBC 4.56 (3.98-5.22) M/mm3 Hgb 12.7 (11.2-15.7) gm/L Hct 39.4 (34.1-44.9) % MCV 86.4 (79.4-94.8) fl MCH 27.9 (25.6-32.2) pg MCHC 32.2 (32.2-35.5) g/dl RDW Std Deviation 51.0 H (36.4-46.3) fL Plt Count 190 (182-369) K/mm3 MPV 12.8 H (9.4-12.3) fl Neut % (Auto) 53.5 (34.0-71.1) % Lymph % (Auto) 35.6 (19.3-51.7) % [place] % (Auto) 8.0 (4.7-12.5) % Eos % (Auto) 2.6 (0.7-5.8) Baso % (Auto) 0.2 (0.1-1.2) % Neut # (Auto) 4.46 (1.56-6.13) K/mm3 Lymph # (Auto) 2.97 (1.18-3.74) K/mm3 [place] # (Auto) 0.67 H (0.24-0.36) K/mm3 Eos # (Auto) 0.22 (0.04-0.36) K/mm3 Baso # (Auto) 0.02 (0.01-0.08) K/mm3 Sodium 141 (136-145) mEq/L Potassium 3.6 (3.5-5.1) mEq/L Chloride 105 (98-107) mEq/L Carbon Dioxide 24 (21-32) mEq/L Anion Gap 15.6 H (5-15) BUN 12 (7-18) mg/dL Creatinine 0.7 (0.55-1.02) mg/dL Est Cr Clr Drug Dosing 98.98 mL/min Estimated GFR (MDRD) > 60 (>60) mL/min BUN/Creatinine Ratio 17.1 (14-18) Glucose 103 (74-106) mg/dL Calcium 8.7 (8.5-10.1) mg/dL Med Orders - Current: Current Medications Acetaminophen (Tylenol) 650 mg PO Q4H PRN PRN Reason: Pain (Mild 1-3)/fever Hydrocodone Bitart/Acetaminophen ([place] 325-5 Mg) 1 tab PO Q4H PRN PRN Reason: Pain (moderate 4-6) Last Admin: 01/10/17 17:22 Dose: 1 tab Albuterol/Ipratropium (Duoneb 3.0-0.5 Mg/3 Ml) 3 ml NEB Q4H PRN PRN Reason: Shortness Of Breath/wheezing Bisacodyl (Dulcolax) 5 mg PO DAILY PRN PRN Reason: Constipation Chlordiazepoxide HCl (Librium) 25 mg PO Q8H PRN PRN Reason: Withdrawal Symptoms Clonidine HCl (Catapres) 0.1 mg PO Q4H PRN PRN Reason: Agitation Docusate Sodium (Colace) 100 mg PO Q12H PRN PRN Reason: Constipation Famotidine (Pepcid) 20 mg PO Q12H [facility] Last Admin: 01/11/17 08:46 Dose: 20 mg Ferrous Sulfate (Ferrous Sulfate) 325 mg PO BRK [facility] Last Admin: 01/11/17 08:46 Dose: 325 mg Haloperidol Lactate (Haldol) 2 mg IM Q4H PRN PRN Reason: Psychosis Hydralazine HCl (Apresoline) 20 mg IVPUSH Q4H PRN PRN Reason: Hypertension Hydromorphone HCl (Dilaudid) 0.25 mg IVPUSH Q2H PRN PRN Reason: Pain (severe 7-10) Promethazine HCl 12.5 mg/ (Sodium Chloride) 50.5 mls @ 100 mls/hr IV Q6H PRN PRN Reason: Nausea/Vomiting Sodium Chloride (Normal Saline) 1,000 mls @ 100 mls/hr IV ASDIRECTED [facility] Last Admin: 01/08/17 23:56 Dose: 100 mls/hr Lorazepam (Ativan) 1 mg IVPUSH Q4H PRN; Protocol PRN Reason: Withdrawal Symptoms Last Admin: 01/10/17 12:24 Dose: 1 mg Metoprolol Tartrate (Lopressor) 5 mg IVPUSH Q4H PRN PRN Reason: Tachycardia Miscellaneous Information (Remove Patch) 1 ea TRDERM Q72H PRN PRN Reason: PATCH REMOVAL NEEDED Multivitamins (Thera) 1 each PO DAILY [facility] Last Admin: 01/11/17 08:47 Dose: 1 each Nicotine (Habitrol) 21 mg TRDERM DAILY [facility] Last Admin: 01/11/17 08:46 Dose: 21 mg Ondansetron HCl (Zofran) 4 mg IV Q6H PRN PRN Reason: Nausea/Vomiting Last Admin: 01/10/17 18:22 Dose: 4 mg Polyethylene Glycol (Miralax) 17 gm PO DAILY PRN PRN Reason: Constipation Quetiapine Fumarate (Seroquel) 25 mg PO BID [facility] Last Admin: 01/11/17 08:46 Dose: 25 mg Quetiapine Fumarate (Seroquel) 100 mg PO BEDTIME [facility] Last Admin: 01/10/17 21:43 Dose: 100 mg Scopolamine (Transderm-Scop) 1.5 mg TRDERM Q72H PRN PRN Reason: Nausea/Vomiting Last Admin: 01/10/17 18:22 Dose: 1.5 mg Senna/Docusate Sodium (Senna Plus) 1 tab PO BID PRN PRN Reason: Constipation Sertraline HCl (Zoloft) 50 mg PO DAILY [facility] Last Admin: 01/11/17 08:47 Dose: 50 mg Thiamine HCl (Vitamin B-1) 100 mg PO DAILY [facility] Last Admin: 01/11/17 08:47 Dose: 100 mg Discontinued Medications Diphenhydramine HCl (Benadryl) 50 mg IVPUSH ONETIME ONE Stop: 01/08/17 22:11 Last Admin: 01/08/17 22:33 Dose: 50 mg Docusate Sodium (Colace) 100 mg PO BID PRN PRN Reason: Constipation Folic Acid (Folic Acid) 1 mg PO DAILY [facility] Stop: 01/11/17 09:01 Last Admin: 01/11/17 08:47 Dose: 1 mg Hydralazine HCl (Apresoline) 20 mg IVPUSH Q4H PRN PRN Reason: Hypertension Thiamine HCl 100 mg/ Sodium (Chloride) 51 mls @ 100 mls/hr IV ONETIME ONE Stop: 01/08/17 23:25 Last Admin: 01/08/17 23:56 Dose: 100 mls/hr Lorazepam (Ativan) 1 mg IV Q6H PRN PRN Reason: Anxiety Lorazepam (Ativan) 2 mg IVPUSH Q4H PRN PRN Reason: Seizures Last Admin: 01/09/17 21:50 Dose: 2 mg Metoprolol Tartrate (Lopressor) 5 mg IVPUSH Q4H PRN PRN Reason: Tachycardia Prenat Multivit/[place]/Iron/Folic Ac ( Plus Iron) 1 each PO DAILY [facility] Last Admin: 01/09/17 12:06 Dose: 1 each Quetiapine Fumarate (Seroquel) 25 mg PO BEDTIME [facility] Quetiapine Fumarate (Seroquel) 25 mg PO BEDTIME [facility] Last Admin: 01/09/17 20:01 Dose: Not Given - Exam Quality Assessment: DVT prophylaxis General: alert, oriented, no acute distress HEENT: Pupils equal, Pupils reactive, EOMI Neck: supple, trachea midline Lungs: Normal respiratory effort Cardiovascular: Regular Rate, Tachycardia Abdomen: bowel sounds present, soft, no tenderness, no distension (Female) Exam: Deferred Back Exam: Normal Inspection Extremities: normal pulses Skin: warm Neurological: no new focal deficit Psy/Mental Status: alert, anxious - Problem List Review Problem List Initiated/Reviewed/Updated: Yes - Plan Plan:: Acute: Suicidal Ideation - Has been suicidal since October of this year - Has attempted suicide by ingestion of drugs in the past - She ingest "whatever is around" - She is not homocidal - 1:1 care Hallucinations, Still persists - Organic vs Medication induced with Amphetamines vs ETOH - Also here her dad's voice, auditory noise starts to bother her at the time of my examination - PRN Haldol - Seroquel work with her at night; will change frequency to BID since she still symptomatic during the day - Awaiting Dr. Álvarez input Substance Abuse - Pos for Amphetamine/Methamphetamine and THC: patient admits to it - Was never in rehab in the past - Supportive Care - Consult SAC: pending inpatient placement ETOH Abuse, CIWA score: 5 at is trinh - Drinks 6 pack day +/- 1/2 pint of hard liquor: Thursday-Thursday - CIWA Protocol - PRN Ativan for abortive seizures - MVI, Folic Acid and Thiamine Nicotine Dependence - Smokes 2ppd - Nicotine patch daily Plan: She remains stable She is not medically cleared yet Continue current treatment PRN Meds for symptomatic control 1:1 care: hallucinations and suicidal ideation SW/CM for d/c planning Awaiting Psych consult Additional orders as above LOS > 96 hrs chemical rehab placement
[2017-01-11] MEDS: Potassium Chloride 10% 20 MEQ/15 ML Soln 30 ML UD Cup PO SCH ×3 (11:25→20:03)
[2017-01-11] MEDS: Ondansetron 4 MG/2 ML SDV IV PRN ×2 (12:05→20:03)
[2017-01-11] MEDS: cloNIDine 0.1 MG Tab PO SCH (16:32)
[2017-01-11] MEDS: chlordiazePOXIDE 25 MG Cap PO SCH (19:38)
[2017-01-11] MEDS: QUEtiapine 100 MG Tab PO SCH ×2 (19:38→20:03)
[2017-01-12] MEDS: cloNIDine 0.1 MG Tab PO SCH ×5 (00:15→21:09)
[2017-01-12] MEDS: chlordiazePOXIDE 25 MG Cap PO SCH ×4 (04:05→21:08)
[2017-01-12] MEDS: Potassium Chloride 10% 20 MEQ/15 ML Soln 30 ML UD Cup PO SCH (08:50)
[2017-01-12] MEDS: Ferrous Sulfate 325 MG Tab PO SCH (08:50)
[2017-01-12] MEDS: Thiamine 100 MG Tab PO SCH (08:51)
[2017-01-12] MEDS: Famotidine 20 MG Tab PO SCH ×2 (08:51→21:08)
[2017-01-12] MEDS: Sertraline 50 MG Tab PO SCH (08:51)
[2017-01-12] MEDS: Nicotine 21 MG/24 Hr Patch TRDERM SCH (08:51)
[2017-01-12] MEDS: Multivitamins,Therapeutic Tab PO SCH (08:51)
[2017-01-12] MEDS: QUEtiapine 25 MG Tab PO SCH ×2 (08:51→21:07)
--- NOTE | 2017-01-12 12:25 | PCM.PN ---
- General Info Date of Service: 01/12/17 Functional Status: Reports: pain controlled, tolerating diet, ambulating, urinating - Review of Systems General: Reports: No Symptoms HEENT: Reports: no symptoms Pulmonary: Reports: no symptoms Cardiovascular: Reports: No Symptoms Gastrointestinal: Reports: No symptoms Genitourinary: Reports: no symptoms Musculoskeletal: Reports: no symptoms Skin: Reports: no symptoms Neurological: Reports: No Symptoms Psychiatric: Reports: anxiety - Patient Data Vitals - most recent: Last Vital Signs Temp 36.6 C 01/12/17 08:00 Pulse 92 01/11/17 11:27 Resp 18 01/12/17 08:00 BP 111/69 01/12/17 09:22 Pulse Ox 100 01/12/17 08:00 Weight - most recent: 71.16 kg I&O - last 24 hours: Intake & Output 01/11/17 01/12/17 01/12/17 22:59 06:59 14:59 Intake Total 360 280 180 Output Total 1200 Balance -840 280 180 Lab Results last 24 hrs: Laboratory Results - last 24 hr 01/11/17 01/12/17 01/12/17 Range/Units 15:54 06:01 06:01 WBC 8.45 (3.98-10.04) K/mm3 RBC 4.85 (3.98-5.22) M/mm3 Hgb 13.6 (11.2-15.7) gm/L Hct 41.8 (34.1-44.9) % MCV 86.2 (79.4-94.8) fl MCH 28.0 (25.6-32.2) pg MCHC 32.5 (32.2-35.5) g/dl RDW Std Deviation 51.0 H (36.4-46.3) fL Plt Count 190 (182-369) K/mm3 MPV 12.5 H (9.4-12.3) fl Neut % (Auto) 57.7 (34.0-71.1) % Lymph % (Auto) 31.0 (19.3-51.7) % [place] % (Auto) 7.7 (4.7-12.5) % Eos % (Auto) 3.2 (0.7-5.8) Baso % (Auto) 0.2 (0.1-1.2) % Neut # (Auto) 4.87 (1.56-6.13) K/mm3 Lymph # (Auto) 2.62 (1.18-3.74) K/mm3 [place] # (Auto) 0.65 H (0.24-0.36) K/mm3 Eos # (Auto) 0.27 (0.04-0.36) K/mm3 Baso # (Auto) 0.02 (0.01-0.08) K/mm3 Sodium 139 (136-145) mEq/L Potassium 4.0 (3.5-5.1) mEq/L Chloride 106 (98-107) mEq/L Carbon Dioxide 25 (21-32) mEq/L Anion Gap 12.0 (5-15) BUN 14 (7-18) mg/dL Creatinine 0.8 (0.55-1.02) mg/dL Est Cr Clr Drug Dosing 86.60 mL/min Estimated GFR (MDRD) > 60 (>60) mL/min BUN/Creatinine Ratio 17.5 (14-18) Glucose 110 H (74-106) mg/dL Calcium 8.7 (8.5-10.1) mg/dL Urine Color Yellow (Yellow) Urine Appearance Slt cloudy H (Clear) Urine pH 7.0 (5.0-8.0) Ur Specific [place] 1.020 (1.005-1.030) Urine Protein Negative (Negative) Urine Glucose (UA) Negative (Negative) Urine Ketones Negative (Negative) Urine Occult Blood Negative (Negative) Urine Nitrite Negative (Negative) Urine Bilirubin Negative (Negative) Urine Urobilinogen 0.2 (0.2-1.0) Ur Leukocyte Esterase 2+ H (Negative) Urine RBC 0-5 (0-5) /hpf Urine WBC 10-20 H (0-5) /hpf Ur Epithelial Cells 0-5 (0-5) /hpf Urine Bacteria Few (FEW) /hpf Urine Mucus Few (FEW) /hpf Med Orders - Current: Current Medications Acetaminophen (Tylenol) 650 mg PO Q4H PRN PRN Reason: Pain (Mild 1-3)/fever Hydrocodone Bitart/Acetaminophen ([place] 325-5 Mg) 1 tab PO Q4H PRN PRN Reason: Pain (moderate 4-6) Last Admin: 01/10/17 17:22 Dose: 1 tab Albuterol/Ipratropium (Duoneb 3.0-0.5 Mg/3 Ml) 3 ml NEB Q4H PRN PRN Reason: Shortness Of Breath/wheezing Bisacodyl (Dulcolax) 5 mg PO DAILY PRN PRN Reason: Constipation Chlordiazepoxide HCl (Librium) 25 mg PO Q8HR [facility] Last Admin: 01/12/17 08:51 Dose: 25 mg Clonidine HCl (Catapres) 0.1 mg PO Q8HR [facility] Last Admin: 01/12/17 08:52 Dose: Not Given Docusate Sodium (Colace) 100 mg PO Q12H PRN PRN Reason: Constipation Famotidine (Pepcid) 20 mg PO Q12H [facility] Last Admin: 01/12/17 08:51 Dose: 20 mg Ferrous Sulfate (Ferrous Sulfate) 325 mg PO BRK [facility] Last Admin: 01/12/17 08:50 Dose: 325 mg Haloperidol Lactate (Haldol) 2 mg IM Q4H PRN PRN Reason: Psychosis Hydralazine HCl (Apresoline) 20 mg IVPUSH Q4H PRN PRN Reason: Hypertension Hydromorphone HCl (Dilaudid) 0.25 mg IVPUSH Q2H PRN PRN Reason: Pain (severe 7-10) Promethazine HCl 12.5 mg/ (Sodium Chloride) 50.5 mls @ 100 mls/hr IV Q6H PRN PRN Reason: Nausea/Vomiting Lorazepam (Ativan) 1 mg IVPUSH Q4H PRN; Protocol PRN Reason: Withdrawal Symptoms Last Admin: 01/10/17 12:24 Dose: 1 mg Metoprolol Tartrate (Lopressor) 5 mg IVPUSH Q4H PRN PRN Reason: Tachycardia Miscellaneous Information (Remove Patch) 1 ea TRDERM Q72H PRN PRN Reason: PATCH REMOVAL NEEDED Multivitamins (Thera) 1 each PO DAILY [facility] Last Admin: 01/12/17 08:51 Dose: 1 each Nicotine (Habitrol) 21 mg TRDERM DAILY [facility] Last Admin: 01/12/17 08:51 Dose: 21 mg Ondansetron HCl (Zofran) 4 mg IV Q6H PRN PRN Reason: Nausea/Vomiting Last Admin: 01/11/17 20:03 Dose: 4 mg Polyethylene Glycol (Miralax) 17 gm PO DAILY PRN PRN Reason: Constipation Quetiapine Fumarate (Seroquel) 25 mg PO BID [facility] Last Admin: 01/12/17 08:51 Dose: 25 mg Quetiapine Fumarate (Seroquel) 100 mg PO BEDTIME [facility] Last Admin: 01/11/17 20:03 Dose: Not Given Scopolamine (Transderm-Scop) 1.5 mg TRDERM Q72H PRN PRN Reason: Nausea/Vomiting Last Admin: 01/10/17 18:22 Dose: 1.5 mg Senna/Docusate Sodium (Senna Plus) 1 tab PO BID PRN PRN Reason: Constipation Sertraline HCl (Zoloft) 50 mg PO DAILY [facility] Last Admin: 01/12/17 08:51 Dose: 50 mg Thiamine HCl (Vitamin B-1) 100 mg PO DAILY [facility] Last Admin: 01/12/17 08:51 Dose: 100 mg Discontinued Medications Chlordiazepoxide HCl (Librium) 25 mg PO Q8H PRN PRN Reason: Withdrawal Symptoms Last Admin: 01/11/17 12:05 Dose: 25 mg Chlordiazepoxide HCl (Librium) 25 mg PO Q8H [facility] Last Admin: 01/12/17 04:05 Dose: Not Given Clonidine HCl (Catapres) 0.1 mg PO Q4H PRN PRN Reason: Agitation Clonidine HCl (Catapres) 0.1 mg PO Q8H [facility] Last Admin: 01/12/17 09:22 Dose: Not Given Diphenhydramine HCl (Benadryl) 50 mg IVPUSH ONETIME ONE Stop: 01/08/17 22:11 Last Admin: 01/08/17 22:33 Dose: 50 mg Docusate Sodium (Colace) 100 mg PO BID PRN PRN Reason: Constipation Folic Acid (Folic Acid) 1 mg PO DAILY [facility] Stop: 01/11/17 09:01 Last Admin: 01/11/17 08:47 Dose: 1 mg Hydralazine HCl (Apresoline) 20 mg IVPUSH Q4H PRN PRN Reason: Hypertension Sodium Chloride (Normal Saline) 1,000 mls @ 100 mls/hr IV ASDIRECTED [facility] Last Admin: 01/08/17 23:56 Dose: 100 mls/hr Thiamine HCl 100 mg/ Sodium (Chloride) 51 mls @ 100 mls/hr IV ONETIME ONE Stop: 01/08/17 23:25 Last Admin: 01/08/17 23:56 Dose: 100 mls/hr Lorazepam (Ativan) 1 mg IV Q6H PRN PRN Reason: Anxiety Lorazepam (Ativan) 2 mg IVPUSH Q4H PRN PRN Reason: Seizures Last Admin: 01/09/17 21:50 Dose: 2 mg Metoprolol Tartrate (Lopressor) 5 mg IVPUSH Q4H PRN PRN Reason: Tachycardia Potassium Chloride (Potassium Chloride) 40 meq PO BID [facility] Stop: 01/12/17 09:01 Last Admin: 01/12/17 08:50 Dose: 40 meq Prenat Multivit/[place]/Iron/Folic Ac ( Plus Iron) 1 each PO DAILY [facility] Last Admin: 01/09/17 12:06 Dose: 1 each Quetiapine Fumarate (Seroquel) 25 mg PO BEDTIME [facility] Quetiapine Fumarate (Seroquel) 25 mg PO BEDTIME [facility] Last Admin: 01/09/17 20:01 Dose: Not Given - Exam Quality Assessment: DVT prophylaxis General: alert, oriented, cooperative, no acute distress HEENT: Pupils equal, Pupils reactive, EOMI Neck: supple, trachea midline Lungs: Normal respiratory effort Cardiovascular: Regular Rate, Regular Rhythm Abdomen: bowel sounds present, soft, no tenderness, no distension (Female) Exam: Deferred Back Exam: Normal Inspection Extremities: normal pulses Skin: warm Neurological: no new focal deficit Psy/Mental Status: alert, anxious - Problem List & Annotations (1) Methamphetamine abuse SNOMED Code(s): 525823021 Code(s): F15.10 - OTHER STIMULANT ABUSE, UNCOMPLICATED Status: Acute Current Visit: Yes (2) Opioid abuse SNOMED Code(s): 5723688 Code(s): F11.10 - OPIOID ABUSE, UNCOMPLICATED Status: Acute Current Visit : Yes (3) Polysubstance abuse SNOMED Code(s): 324303458 Code(s): F19.10 - OTHER PSYCHOACTIVE SUBSTANCE ABUSE, UNCOMPLICATED Status : Acute Current Visit: Yes (4) Verbal auditory hallucinations SNOMED Code(s): 317500136 Code(s): R44.0 - AUDITORY HALLUCINATIONS Status: Acute Current Visit: Yes - Problem List Review Problem List Initiated/Reviewed/Updated: Yes - My Orders Last 24 Hours: My Active Orders 01/12/17 08:00 chlordiazePOXIDE [Librium] 25 mg PO Q8HR cloNIDine [Catapres] 0.1 mg PO Q8HR - Plan Plan:: Acute: Suicidal Ideation - Has been suicidal since October of this year - Has attempted suicide by ingestion of drugs in the past - She ingest "whatever is around" - She is not homocidal - 1:1 care Hallucinations, Still persists - Organic vs Medication induced with Amphetamines vs ETOH - Also here her dad's voice, auditory noise starts to bother her at the time of my examination - PRN Haldol - Seroquel work with her at night; will change frequency to BID since she still symptomatic during the day - Awaiting Dr. Álvarez input Substance Abuse - Pos for Amphetamine/Methamphetamine and THC: patient admits to it - Was never in rehab in the past - Supportive Care - [facility]AC: pending inpatient placement ETOH Abuse, CIWA score: 5 at is trinh - Drinks 6 pack day +/- 1/2 pint of hard liquor: Thursday-Thursday - CIWA Protocol - PRN Ativan for abortive seizures - MVI, Folic Acid and Thiamine Nicotine Dependence - Smokes 2ppd - Nicotine patch daily Plan: Maintain ICU status She remains stable She is not medically cleared yet Continue current treatment PRN Meds for symptomatic control 1:1 care: hallucinations and suicidal ideation SW/CM for d/c planning Psych consult Additional orders as above LOS > 96 hrs chemical rehab placement
--- NOTE | 2017-01-12 14:06 | CONS ---
CONSULTING PHYSICIAN: Phani Álvarez MD DATE OF CONSULTATION: 01/10/2017 This is a 60-minute inpatient clinical event. IDENTIFICATION: The patient is a 26-year-old female who was admitted to the inpatient MICU at [facility] and is seen now for psychiatric evaluation. CHIEF COMPLAINT: "I was hearing voices. My neighbor called the home manager." HISTORY OF PRESENT ILLNESS: The patient is a 26-year-old female who reports that she "want to get sober for my kids." Evidently, the patient has been using meth and alcohol as well as marijuana. She was in treatment in , had a month of sobriety, but right now, the use has been out of hand, and the patient has been feeling "down and sad." The patient feels that she is depressed. She also has poor sleep initiation and poor sleep maintenance. She was suicidal on admission, but she is denying that she is suicidal now. She denies that she is suicidal or homicidal. She is reporting that auditory hallucinations have been occurring for the past few days as well as some visual hallucinosis. She is wondering if something can be done to help her. She states that she was out of Zoloft in the past and even while she was using it, she felt that the Zoloft "helped a little bit" in terms of improving her mood. She states that when she gets more depressed, she gets more isolative, and she has a tendency to use more than she typically uses by herself, though people "will come by sometimes and they have stuff and that makes it harder" for her to stay sober. [place], and she states once she gets treatment, she may try to move to [place] or [place], so that she can be out of that environment because, again, she states that she wants to stay sober not only for herself, but for her kids. MEDICATIONS: Medications at the time of presentation; 1. Seroquel 25 mg b.i.d. 2. The patient is on [facility] protocol for withdrawal. ALLERGIES: No known drug allergies. PAST MEDICAL HISTORY: The patient denies. REVIEW OF SYSTEMS: Negative for any acute difficulties or complications currently with her GI, , pulmonary, cardiac, endocrine, blood, immune, skin, musculoskeletal, and neuro. FAMILY PSYCHIATRIC AND CD HISTORY: The patient reports both parents have struggled with alcoholism. PAST PSYCHIATRIC AND CD HISTORY: The patient reports one chemical dependency treatment in 15 for marijuana, meth, and alcohol use. She has been using daily lately. Longest sobriety was for 1 month after treatment. She is not reporting any psychiatric hospitalizations. Past psychiatric medication history is significant for Zoloft, which did "help a little bit" in the past. SOCIAL HISTORY: The patient was born in [place], [place], and raised in [place], [place]. She is the oldest of 6 siblings, 4 brothers, and 1 sister. The patient's biological parents were never . She was raised essentially by her father. Father worked in [employer]. She did not know her mother growing up. The patient is part of the [facility] [place], and she is looking to transfer her membership up through the 3 affiliated tribes. Her highest level of education is a GED. She is not working. She has never been and not involved in current relationship. She has 5 children. One child from 1 relationship and 4 children from another relationship. She gets monthly disbursement for her children. She lives with her kids and her father in [place]. Her kids are with her father right now. She denies any prior service or any current legal difficulties. She is Sikhism in terms of her jesica formation. MENTAL STATUS EXAM: The patient is a 26-year-old female in no apparent distress. Speech is of regular rate and rhythm. The patient is cognitively oriented. Psychomotor activities are within normal limits. There are no abnormal motor movements or tics observed. Gait and station are not observed. This patient is in bed at the time of the consult. Mood is depressed. Affect is consistent with stated mood, but cooperative overall for the purposes of the inpatient consult. There is no behavioral or stated evidence of acute suicidal or homicidal ideation. Thought content is significant for non-command type auditory hallucinations and visual hallucinations. Thought processes are organized at this point in time. There are no manic symptoms or loose associations evident. Judgment and insight do appear impaired secondary to the severity of her chemical dependency issues, but motivation for help appears good. VITAL SIGNS: 111/80, 73, 16, 98.6 degrees. IMPRESSION: [place] I: 1. Alcohol dependence, F10.20. 2. Psychosis, not otherwise specified, F29. 3. Major depressive disorder, F33.2. 4. Anxiety disorder, not otherwise specified, F41.9. 5. Methamphetamine dependence. 6. Alcohol abuse versus dependence. 7. Rule out bipolar affective disease, mixed type. [place] II: None. [place] III: No known active problems. [place] IV: Severe. [place] V: 50. PLAN: 1. Sobriety. 2. Chemical dependency treatment when medically stabilized. 3. Thiamine supplementation. 4. Folic acid supplementation. 5. Begin Zoloft 50 mg q.a.m. for mood. 6. Increase the patient's Seroquel from 25 mg b.i.d. to 100 mg at bedtime to help eliminate psychotic symptoms, improve sleep initiation and maintenance, and reduce anxiety. 7. Continue CIWA protocol as prescribed. 8. AA rep to visit the patient while on unit. 9. Pastoral guidance while the patient remains on the unit. 10.Recommend the patient follow up with outpatient psychiatry when she is medically stabilized and transfer to treatment and completes this program. 11.We will continue follow up with the patient on an as-needed basis going forward while the patient remains on the unit. 12.We will follow up sooner with the patient if there are any complications in the interim. 13.Medication compliance. 14.Crisis plan is in place. KATIE /[id number]
[2017-01-12] MEDS: QUEtiapine 100 MG Tab PO SCH (21:08)
[2017-01-12] MEDS: LORazepam 2 MG/ML MDV IVPUSH PRN (22:10)
[2017-01-13] MEDS: chlordiazePOXIDE 25 MG Cap PO SCH ×4 (06:15→16:17)
[2017-01-13] MEDS: Ferrous Sulfate 325 MG Tab PO SCH (06:16)
[2017-01-13] MEDS: cloNIDine 0.1 MG Tab PO SCH ×2 (06:17→15:18)
[2017-01-13] MEDS: Nicotine 21 MG/24 Hr Patch TRDERM SCH (08:10)
[2017-01-13] MEDS: Famotidine 20 MG Tab PO SCH (08:11)
[2017-01-13] MEDS: Sertraline 50 MG Tab PO SCH (08:11)
[2017-01-13] MEDS: Thiamine 100 MG Tab PO SCH (08:11)
[2017-01-13] MEDS: QUEtiapine 25 MG Tab PO SCH (08:11)
[2017-01-13] MEDS: Multivitamins,Therapeutic Tab PO SCH (08:11)
--- NOTE | 2017-01-13 13:27 | PCM.PN ---
<Tiffani Hdz - Last Filed: 01/13/17 13:27> - General Info Date of Service: 01/13/17 Admission Dx/Problem (Free Text): Auditory Hallucinations and Substance Abuse Karime is seen this morning. She was minimally interactive with me this morning but denied pain, denied headache, SOB, CP or abd pain. No cravings. LAC and Psychiatry consults; she has been committed to [facility] for treatment. CIWA's have been low today, 2 and 0. Functional Status: Reports: pain controlled, tolerating diet, ambulating, urinating. Denies: new symptoms - Review of Systems General: Reports: No Symptoms HEENT: Reports: no symptoms Pulmonary: Reports: no symptoms Cardiovascular: Reports: No Symptoms Gastrointestinal: Reports: No symptoms Genitourinary: Reports: no symptoms Musculoskeletal: Reports: no symptoms Skin: Reports: no symptoms Neurological: Reports: No Symptoms Psychiatric: Reports: no symptoms, other (flat affect this morning) - Patient Data Vitals - most recent: Last Vital Signs Temp 98.6 F 01/13/17 11:32 Pulse 82 01/13/17 11:32 Resp 20 01/13/17 11:32 BP 111/69 01/13/17 11:32 Pulse Ox 97 01/13/17 11:32 Weight - most recent: 70.307 kg I&O - last 24 hours: Intake & Output 01/12/17 01/13/17 01/13/17 22:59 06:59 14:59 Intake Total 120 600 480 Output Total 800 Balance 120 -200 480 Med Orders - Current: Current Medications Acetaminophen (Tylenol) 650 mg PO Q4H PRN PRN Reason: Pain (Mild 1-3)/fever Last Admin: 01/12/17 21:15 Dose: 650 mg Hydrocodone Bitart/Acetaminophen ([place] 325-5 Mg) 1 tab PO Q4H PRN PRN Reason: Pain (moderate 4-6) Last Admin: 01/10/17 17:22 Dose: 1 tab Albuterol/Ipratropium (Duoneb 3.0-0.5 Mg/3 Ml) 3 ml NEB Q4H PRN PRN Reason: Shortness Of Breath/wheezing Bisacodyl (Dulcolax) 5 mg PO DAILY PRN PRN Reason: Constipation Chlordiazepoxide HCl (Librium) 25 mg PO Q8HR [facility] Last Admin: 01/13/17 11:36 Dose: 25 mg Clonidine HCl (Catapres) 0.1 mg PO Q8HR [facility] Last Admin: 01/13/17 06:17 Dose: Not Given Docusate Sodium (Colace) 100 mg PO Q12H PRN PRN Reason: Constipation Famotidine (Pepcid) 20 mg PO Q12H [facility] Last Admin: 01/13/17 08:11 Dose: 20 mg Ferrous Sulfate (Ferrous Sulfate) 325 mg PO BRK [facility] Last Admin: 01/13/17 06:16 Dose: 325 mg Haloperidol Lactate (Haldol) 2 mg IM Q4H PRN PRN Reason: Psychosis Last Admin: 01/13/17 11:35 Dose: 2 mg Hydralazine HCl (Apresoline) 20 mg IVPUSH Q4H PRN PRN Reason: Hypertension Lorazepam (Ativan) 1 mg IVPUSH Q4H PRN; Protocol PRN Reason: Withdrawal Symptoms Last Admin: 01/12/17 22:10 Dose: 1 mg Metoprolol Tartrate (Lopressor) 5 mg IVPUSH Q4H PRN PRN Reason: Tachycardia Miscellaneous Information (Remove Patch) 1 ea TRDERM Q72H PRN PRN Reason: PATCH REMOVAL NEEDED Multivitamins (Thera) 1 each PO DAILY [facility] Last Admin: 01/13/17 08:11 Dose: 1 each Nicotine (Habitrol) 21 mg TRDERM DAILY [facility] Last Admin: 01/13/17 08:10 Dose: 21 mg Ondansetron HCl (Zofran) 4 mg IV Q6H PRN PRN Reason: Nausea/Vomiting Last Admin: 01/11/17 20:03 Dose: 4 mg Polyethylene Glycol (Miralax) 17 gm PO DAILY PRN PRN Reason: Constipation Quetiapine Fumarate (Seroquel) 100 mg PO BEDTIME [facility] Last Admin: 01/12/17 21:08 Dose: 100 mg Scopolamine (Transderm-Scop) 1.5 mg TRDERM Q72H PRN PRN Reason: Nausea/Vomiting Last Admin: 01/10/17 18:22 Dose: 1.5 mg Senna/Docusate Sodium (Senna Plus) 1 tab PO BID PRN PRN Reason: Constipation Sertraline HCl (Zoloft) 50 mg PO DAILY [facility] Last Admin: 01/13/17 08:11 Dose: 50 mg Thiamine HCl (Vitamin B-1) 100 mg PO DAILY [facility] Last Admin: 01/13/17 08:11 Dose: 100 mg Discontinued Medications Chlordiazepoxide HCl (Librium) 25 mg PO Q8H PRN PRN Reason: Withdrawal Symptoms Last Admin: 01/11/17 12:05 Dose: 25 mg Chlordiazepoxide HCl (Librium) 25 mg PO Q8H [facility] Last Admin: 01/12/17 04:05 Dose: Not Given Clonidine HCl (Catapres) 0.1 mg PO Q4H PRN PRN Reason: Agitation Clonidine HCl (Catapres) 0.1 mg PO Q8H [facility] Last Admin: 01/12/17 09:22 Dose: Not Given Diphenhydramine HCl (Benadryl) 50 mg IVPUSH ONETIME ONE Stop: 01/08/17 22:11 Last Admin: 01/08/17 22:33 Dose: 50 mg Docusate Sodium (Colace) 100 mg PO BID PRN PRN Reason: Constipation Folic Acid (Folic Acid) 1 mg PO DAILY [facility] Stop: 01/11/17 09:01 Last Admin: 01/11/17 08:47 Dose: 1 mg Hydralazine HCl (Apresoline) 20 mg IVPUSH Q4H PRN PRN Reason: Hypertension Hydromorphone HCl (Dilaudid) 0.25 mg IVPUSH Q2H PRN PRN Reason: Pain (severe 7-10) Promethazine HCl 12.5 mg/ (Sodium Chloride) 50.5 mls @ 100 mls/hr IV Q6H PRN PRN Reason: Nausea/Vomiting Sodium Chloride (Normal Saline) 1,000 mls @ 100 mls/hr IV ASDIRECTED [facility] Last Admin: 01/08/17 23:56 Dose: 100 mls/hr Thiamine HCl 100 mg/ Sodium (Chloride) 51 mls @ 100 mls/hr IV ONETIME ONE Stop: 01/08/17 23:25 Last Admin: 01/08/17 23:56 Dose: 100 mls/hr Lorazepam (Ativan) 1 mg IV Q6H PRN PRN Reason: Anxiety Lorazepam (Ativan) 2 mg IVPUSH Q4H PRN PRN Reason: Seizures Last Admin: 01/09/17 21:50 Dose: 2 mg Metoprolol Tartrate (Lopressor) 5 mg IVPUSH Q4H PRN PRN Reason: Tachycardia Potassium Chloride (Potassium Chloride) 40 meq PO BID [facility] Stop: 01/12/17 09:01 Last Admin: 01/12/17 08:50 Dose: 40 meq Prenat Multivit/Trimming Assembler/Iron/Folic Ac ( Plus Iron) 1 each PO DAILY [facility] Last Admin: 01/09/17 12:06 Dose: 1 each Quetiapine Fumarate (Seroquel) 25 mg PO BEDTIME [facility] Quetiapine Fumarate (Seroquel) 25 mg PO BEDTIME [facility] Last Admin: 01/09/17 20:01 Dose: Not Given Quetiapine Fumarate (Seroquel) 25 mg PO BID [facility] Last Admin: 01/13/17 08:11 Dose: 25 mg - Exam Quality Assessment: DVT prophylaxis General: alert, oriented, cooperative, no acute distress HEENT: Pupils equal, Pupils reactive, EOMI, Mucous membr. moist/pink Neck: supple Lungs: Clear to auscultation, Normal respiratory effort Cardiovascular: Regular Rate, Regular Rhythm, No Murmurs Abdomen: bowel sounds present, soft, no tenderness, no distension (Female) Exam: Deferred Back Exam: Normal Inspection Extremities: no edema, no calf tenderness Peripheral Pulses: 1+: Dorsalis Pedis (L), Dorsalis Pedis (R) Skin: warm, dry Neurological: no new focal deficit Psy/Mental Status: alert, normal mood - Problem List & Annotations (1) Methamphetamine abuse SNOMED Code(s): 878109011 Code(s): F15.10 - OTHER STIMULANT ABUSE, UNCOMPLICATED Status: Acute Priority: High Current Visit: Yes (2) Opioid abuse SNOMED Code(s): 0947539 Code(s): F11.10 - OPIOID ABUSE, UNCOMPLICATED Status: Acute Priority: High Current Visit: Yes (3) Polysubstance abuse SNOMED Code(s): 063330847 Code(s): F19.10 - OTHER PSYCHOACTIVE SUBSTANCE ABUSE, UNCOMPLICATED Status : Acute Priority: High Current Visit: Yes (4) Verbal auditory hallucinations SNOMED Code(s): 282213502 Code(s): R44.0 - AUDITORY HALLUCINATIONS Status: Resolved Priority: High Current Visit: Yes - Problem List Review Problem List Initiated/Reviewed/Updated: Yes - Plan Plan:: Acute: Suicidal Ideation - Has been suicidal since October of this year - Has attempted suicide by ingestion of drugs in the past - She ingest "whatever is around" - She is not homicidal Hallucinations, Still persists - Organic vs Medication induced with Amphetamines vs ETOH - Also here her dad's voice, auditory noise starts to bother her at the time of my examination - PRN Haldol--has not needed this - Seroquel 100mg QHS per Dr. Álvarez, Psychiatrist recommendations Substance Abuse - Pos for Amphetamine/Methamphetamine and THC: patient admits to it - Was never in rehab in the past - Supportive Care - SAC: pending inpatient placement ETOH Abuse, CIWA score: 0 and 2 today - Drinks 6 pack day +/- 1/2 pint of hard liquor: Thursday-Thursday - CIWA Protocol - PRN Ativan for abortive seizures - MVI, Folic Acid and Thiamine Nicotine Dependence - Smokes 2ppd - Nicotine patch daily Plan: Transferred to M/S/Tele unit Continue current treatment- will have [facility] screen for [facility] today for likely dc tomorrow to [facility]; she is medically stable PRN Meds for symptomatic control SW/CM for d/c planning Psych and LAC consults done Additional orders as above LOS > 96 hrs chemical rehab placement <Sharon Gerardo - Last Filed: 01/13/17 14:20> - Patient Data Vitals - most recent: Last Vital Signs Temp 37.0 C 01/13/17 11:32 Pulse 82 01/13/17 11:32 Resp 20 01/13/17 11:32 BP 111/69 01/13/17 11:32 Pulse Ox 97 01/13/17 11:32 I&O - last 24 hours: Intake & Output 01/12/17 01/13/17 01/13/17 22:59 06:59 14:59 Intake Total 120 600 480 Output Total 800 Balance 120 -200 480 Med Orders - Current: Current Medications Acetaminophen (Tylenol) 650 mg PO Q4H PRN PRN Reason: Pain (Mild 1-3)/fever Last Admin: 01/12/17 21:15 Dose: 650 mg Hydrocodone Bitart/Acetaminophen ([place] 325-5 Mg) 1 tab PO Q4H PRN PRN Reason: Pain (moderate 4-6) Last Admin: 01/10/17 17:22 Dose: 1 tab Albuterol/Ipratropium (Duoneb 3.0-0.5 Mg/3 Ml) 3 ml NEB Q4H PRN PRN Reason: Shortness Of Breath/wheezing Bisacodyl (Dulcolax) 5 mg PO DAILY PRN PRN Reason: Constipation Chlordiazepoxide HCl (Librium) 25 mg PO Q8HR [facility] Last Admin: 01/13/17 11:36 Dose: 25 mg Clonidine HCl (Catapres) 0.1 mg PO Q8HR [facility] Last Admin: 01/13/17 06:17 Dose: Not Given Docusate Sodium (Colace) 100 mg PO Q12H PRN PRN Reason: Constipation Famotidine (Pepcid) 20 mg PO Q12H [facility] Last Admin: 01/13/17 08:11 Dose: 20 mg Ferrous Sulfate (Ferrous Sulfate) 325 mg PO BRK [facility] Last Admin: 01/13/17 06:16 Dose: 325 mg Haloperidol Lactate (Haldol) 2 mg IM Q4H PRN PRN Reason: Psychosis Last Admin: 01/13/17 11:35 Dose: 2 mg Hydralazine HCl (Apresoline) 20 mg IVPUSH Q4H PRN PRN Reason: Hypertension Lorazepam (Ativan) 1 mg IVPUSH Q4H PRN; Protocol PRN Reason: Withdrawal Symptoms Last Admin: 01/12/17 22:10 Dose: 1 mg Metoprolol Tartrate (Lopressor) 5 mg IVPUSH Q4H PRN PRN Reason: Tachycardia Miscellaneous Information (Remove Patch) 1 ea TRDERM Q72H PRN PRN Reason: PATCH REMOVAL NEEDED Multivitamins (Thera) 1 each PO DAILY [facility] Last Admin: 01/13/17 08:11 Dose: 1 each Nicotine (Habitrol) 21 mg TRDERM DAILY [facility] Last Admin: 01/13/17 08:10 Dose: 21 mg Ondansetron HCl (Zofran) 4 mg IV Q6H PRN PRN Reason: Nausea/Vomiting Last Admin: 01/11/17 20:03 Dose: 4 mg Polyethylene Glycol (Miralax) 17 gm PO DAILY PRN PRN Reason: Constipation Quetiapine Fumarate (Seroquel) 100 mg PO BEDTIME [facility] Last Admin: 01/12/17 21:08 Dose: 100 mg Scopolamine (Transderm-Scop) 1.5 mg TRDERM Q72H PRN PRN Reason: Nausea/Vomiting Last Admin: 01/10/17 18:22 Dose: 1.5 mg Senna/Docusate Sodium (Senna Plus) 1 tab PO BID PRN PRN Reason: Constipation Sertraline HCl (Zoloft) 50 mg PO DAILY [facility] Last Admin: 01/13/17 08:11 Dose: 50 mg Thiamine HCl (Vitamin B-1) 100 mg PO DAILY [facility] Last Admin: 01/13/17 08:11 Dose: 100 mg Discontinued Medications Chlordiazepoxide HCl (Librium) 25 mg PO Q8H PRN PRN Reason: Withdrawal Symptoms Last Admin: 01/11/17 12:05 Dose: 25 mg Chlordiazepoxide HCl (Librium) 25 mg PO Q8H [facility] Last Admin: 01/12/17 04:05 Dose: Not Given Clonidine HCl (Catapres) 0.1 mg PO Q4H PRN PRN Reason: Agitation Clonidine HCl (Catapres) 0.1 mg PO Q8H [facility] Last Admin: 01/12/17 09:22 Dose: Not Given Diphenhydramine HCl (Benadryl) 50 mg IVPUSH ONETIME ONE Stop: 01/08/17 22:11 Last Admin: 01/08/17 22:33 Dose: 50 mg Docusate Sodium (Colace) 100 mg PO BID PRN PRN Reason: Constipation Folic Acid (Folic Acid) 1 mg PO DAILY [facility] Stop: 01/11/17 09:01 Last Admin: 01/11/17 08:47 Dose: 1 mg Hydralazine HCl (Apresoline) 20 mg IVPUSH Q4H PRN PRN Reason: Hypertension Hydromorphone HCl (Dilaudid) 0.25 mg IVPUSH Q2H PRN PRN Reason: Pain (severe 7-10) Promethazine HCl 12.5 mg/ (Sodium Chloride) 50.5 mls @ 100 mls/hr IV Q6H PRN PRN Reason: Nausea/Vomiting Sodium Chloride (Normal Saline) 1,000 mls @ 100 mls/hr IV ASDIRECTED [facility] Last Admin: 01/08/17 23:56 Dose: 100 mls/hr Thiamine HCl 100 mg/ Sodium (Chloride) 51 mls @ 100 mls/hr IV ONETIME ONE Stop: 01/08/17 23:25 Last Admin: 01/08/17 23:56 Dose: 100 mls/hr Lorazepam (Ativan) 1 mg IV Q6H PRN PRN Reason: Anxiety Lorazepam (Ativan) 2 mg IVPUSH Q4H PRN PRN Reason: Seizures Last Admin: 01/09/17 21:50 Dose: 2 mg Metoprolol Tartrate (Lopressor) 5 mg IVPUSH Q4H PRN PRN Reason: Tachycardia Potassium Chloride (Potassium Chloride) 40 meq PO BID [facility] Stop: 01/12/17 09:01 Last Admin: 01/12/17 08:50 Dose: 40 meq Prenat Multivit/Granite/Iron/Folic Ac ( Plus Iron) 1 each PO DAILY [facility] Last Admin: 01/09/17 12:06 Dose: 1 each Quetiapine Fumarate (Seroquel) 25 mg PO BEDTIME [facility] Quetiapine Fumarate (Seroquel) 25 mg PO BEDTIME [facility] Last Admin: 01/09/17 20:01 Dose: Not Given Quetiapine Fumarate (Seroquel) 25 mg PO BID [facility] Last Admin: 01/13/17 08:11 Dose: 25 mg - Problem List & Annotations (1) Methamphetamine abuse SNOMED Code(s): 754991620 Code(s): F15.10 - OTHER STIMULANT ABUSE, UNCOMPLICATED Status: Acute Priority: High Current Visit: Yes (2) Opioid abuse SNOMED Code(s): 9223205 Code(s): F11.10 - OPIOID ABUSE, UNCOMPLICATED Status: Acute Priority: High Current Visit: Yes (3) Polysubstance abuse SNOMED Code(s): 189568432 Code(s): F19.10 - OTHER PSYCHOACTIVE SUBSTANCE ABUSE, UNCOMPLICATED Status : Acute Priority: High Current Visit: Yes (4) Verbal auditory hallucinations SNOMED Code(s): 005234291 Code(s): R44.0 - AUDITORY HALLUCINATIONS Status: Resolved Priority: High Current Visit: Yes - Plan Plan:: Accepted by Dr Amador at [facility], DC date TBD. Will notify admitting at [facility] and make arrangement.
[2017-01-13 15:18] VITALS: BP 110/68
--- NOTE | 2017-01-14 14:54 | PCM.DCSUM1 ---
Discharge Summary - Hospital Course Free Text/Narrative:: 26 year old female with suicidal ideation continues to experience auditory hallucinations. She has no significant medical needs unrelated to her substance abuse. Her history includes amphetamine/meth/THC. ETOH exposure is at least a 6 pack daily. CIWA protocol was followed; she will be discharged on Librium as well as Haldol. Ativan prn is also provided. The patient had been seen by [facility] as well as psych services. She has been committed to [facility], her DC has been moved up to today, the [employer] [facility] will pick and shovel man the patient for transfer. Primary Dx Major Depression with suicidal ideation and psychotic features Poly-substance abuse Condition Stable medically for IP treatment at [facility] Activity as tolerated in controlled environment Diet Regular Meds Librium 25 mg po TID Haldol 2 mg Q 6 H Thiamine 100 mg QD Zoloft 50 mg QD Seroquel 100 mg Q HS Habitrol 21 mg transdermal Miralax 17 Gm as directed for constipation Follow up, TBD - Discharge Data Discharge Date: 01/13/17 Discharge Disposition: DC/Tfer to Other Condition: Good - Discharge Diagnosis/Problem(s) (1) Methamphetamine abuse SNOMED Code(s): 796881075 ICD Code: F15.10 - OTHER STIMULANT ABUSE, UNCOMPLICATED Status: Acute Priority: High (2) Opioid abuse SNOMED Code(s): 1085042 ICD Code: F11.10 - OPIOID ABUSE, UNCOMPLICATED Status: Acute Priority: High (3) Polysubstance abuse SNOMED Code(s): 449649191 ICD Code: F19.10 - OTHER PSYCHOACTIVE SUBSTANCE ABUSE, UNCOMPLICATED Status : Acute Priority: High (4) Verbal auditory hallucinations SNOMED Code(s): 424413830 ICD Code: R44.0 - AUDITORY HALLUCINATIONS Status: Resolved Priority: High - Patient Summary/Data Consults: Consultations 01/10/17 20:40 Consult to Spiritual Care [CONS] Routine - Patient Instructions Diet: Usual Diet as Tolerated Activity: As Tolerated Driving: Do Not Drive Showering/Bathing: May Shower Notify Provider of: Nausea and/or Vomiting - Discharge Plan Prescriptions/Med Rec: chlordiazePOXIDE [Librium] 25 mg PO Q8HR #14 cap Haloperidol Lactate [Haldol] 2 mg PO Q6H PRN #30 sdv PRN Reason: restlessness LORazepam [Ativan] 1 mg PO Q6H PRN #30 vial PRN Reason: Anxiety Nicotine [Habitrol] 21 mg TRDERM DAILY #30 patch Polyethylene Glycol 3350 [MiraLAX] 17 gm PO DAILY PRN #30 packet PRN Reason: Constipation QUEtiapine [SEROquel] 100 mg PO BEDTIME #30 tablet Sertraline [Zoloft] 50 mg PO DAILY #30 tablet Thiamine [Vitamin B-1] 100 mg PO DAILY #30 tablet Home Medications: Home Meds Vit No.130/Iron/FA [ Tablet] 1 each PO DAILY 07/18/15 [History] Docusate Sodium [Colace] 100 mg PO Q12H PRN #30 cap 07/20/15 [Rx] Ferrous Sulfate 325 mg PO BRK tablet 07/20/15 [Rx] Haloperidol Lactate [Haldol] 2 mg PO Q6H PRN #30 sdv 01/13/17 [Rx] LORazepam [Ativan] 1 mg PO Q6H PRN #30 vial 01/13/17 [Rx] Nicotine [Habitrol] 21 mg TRDERM DAILY #30 patch 01/13/17 [Rx] Polyethylene Glycol 3350 [MiraLAX] 17 gm PO DAILY PRN #30 packet 01/13/17 [Rx] QUEtiapine [SEROquel] 100 mg PO BEDTIME #30 tablet 01/13/17 [Rx] Sertraline [Zoloft] 50 mg PO DAILY #30 tablet 01/13/17 [Rx] Thiamine [Vitamin B-1] 100 mg PO DAILY #30 tablet 01/13/17 [Rx] chlordiazePOXIDE [Librium] 25 mg PO Q8HR #14 cap 01/13/17 [Rx] Patient Handouts: Smoking Cessation, Tips for Success, [id number], Substance Use Disorder, Opioid Withdrawal Referrals: Phani Álvarez MD [Physician] - - Discharge Summary/Plan Comment DC Time >30 min.: No - General Info Date of Service: 01/08/17 Functional Status: Reports: pain controlled, tolerating diet, ambulating - Review of Systems General: Reports: No Symptoms HEENT: Reports: no symptoms Pulmonary: Reports: no symptoms Cardiovascular: Reports: No Symptoms Gastrointestinal: Reports: No symptoms Genitourinary: Reports: no symptoms Musculoskeletal: Reports: no symptoms Skin: Reports: no symptoms Neurological: Reports: No Symptoms Psychiatric: Reports: depression, anxiety - Patient Data Vitals - Most Recent: Last Vital Signs Temp 37.0 C 01/13/17 11:32 Pulse 82 01/13/17 11:32 Resp 20 01/13/17 11:32 BP 110/68 01/13/17 15:18 Pulse Ox 97 01/13/17 11:32 Weight - Most Recent: 70.307 kg I&O - Last 24 hours: Intake & Output 01/13/17 01/14/17 01/14/17 22:59 06:59 14:59 Intake Total 50 Balance 50 Med Orders - Current: Current Medications Discontinued Medications Acetaminophen (Tylenol) 650 mg PO Q4H PRN PRN Reason: Pain (Mild 1-3)/fever Last Admin: 01/12/17 21:15 Dose: 650 mg Hydrocodone Bitart/Acetaminophen ([place] 325-5 Mg) 1 tab PO Q4H PRN PRN Reason: Pain (moderate 4-6) Last Admin: 01/10/17 17:22 Dose: 1 tab Albuterol/Ipratropium (Duoneb 3.0-0.5 Mg/3 Ml) 3 ml NEB Q4H PRN PRN Reason: Shortness Of Breath/wheezing Bisacodyl (Dulcolax) 5 mg PO DAILY PRN PRN Reason: Constipation Chlordiazepoxide HCl (Librium) 25 mg PO Q8H PRN PRN Reason: Withdrawal Symptoms Last Admin: 01/11/17 12:05 Dose: 25 mg Chlordiazepoxide HCl (Librium) 25 mg PO Q8H [facility] Last Admin: 01/12/17 04:05 Dose: Not Given Chlordiazepoxide HCl (Librium) 25 mg PO Q8HR [facility] Last Admin: 01/13/17 16:17 Dose: 25 mg Clonidine HCl (Catapres) 0.1 mg PO Q4H PRN PRN Reason: Agitation Clonidine HCl (Catapres) 0.1 mg PO Q8H [facility] Last Admin: 01/12/17 09:22 Dose: Not Given Clonidine HCl (Catapres) 0.1 mg PO Q8HR [facility] Last Admin: 01/13/17 15:18 Dose: Not Given Diphenhydramine HCl (Benadryl) 50 mg IVPUSH ONETIME ONE Stop: 01/08/17 22:11 Last Admin: 01/08/17 22:33 Dose: 50 mg Docusate Sodium (Colace) 100 mg PO BID PRN PRN Reason: Constipation Docusate Sodium (Colace) 100 mg PO Q12H PRN PRN Reason: Constipation Famotidine (Pepcid) 20 mg PO Q12H [facility] Last Admin: 01/13/17 08:11 Dose: 20 mg Ferrous Sulfate (Ferrous Sulfate) 325 mg PO BRK [facility] Last Admin: 01/13/17 06:16 Dose: 325 mg Folic Acid (Folic Acid) 1 mg PO DAILY [facility] Stop: 01/11/17 09:01 Last Admin: 01/11/17 08:47 Dose: 1 mg Haloperidol Lactate (Haldol) 2 mg IM Q4H PRN PRN Reason: Psychosis Last Admin: 01/13/17 11:35 Dose: 2 mg Hydralazine HCl (Apresoline) 20 mg IVPUSH Q4H PRN PRN Reason: Hypertension Hydralazine HCl (Apresoline) 20 mg IVPUSH Q4H PRN PRN Reason: Hypertension Hydromorphone HCl (Dilaudid) 0.25 mg IVPUSH Q2H PRN PRN Reason: Pain (severe 7-10) Promethazine HCl 12.5 mg/ (Sodium Chloride) 50.5 mls @ 100 mls/hr IV Q6H PRN PRN Reason: Nausea/Vomiting Sodium Chloride (Normal Saline) 1,000 mls @ 100 mls/hr IV ASDIRECTED [facility] Last Admin: 01/08/17 23:56 Dose: 100 mls/hr Thiamine HCl 100 mg/ Sodium (Chloride) 51 mls @ 100 mls/hr IV ONETIME ONE Stop: 01/08/17 23:25 Last Admin: 01/08/17 23:56 Dose: 100 mls/hr Lorazepam (Ativan) 1 mg IV Q6H PRN PRN Reason: Anxiety Lorazepam (Ativan) 2 mg IVPUSH Q4H PRN PRN Reason: Seizures Last Admin: 01/09/17 21:50 Dose: 2 mg Lorazepam (Ativan) 1 mg IVPUSH Q4H PRN; Protocol PRN Reason: Withdrawal Symptoms Last Admin: 01/12/17 22:10 Dose: 1 mg Metoprolol Tartrate (Lopressor) 5 mg IVPUSH Q4H PRN PRN Reason: Tachycardia Metoprolol Tartrate (Lopressor) 5 mg IVPUSH Q4H PRN PRN Reason: Tachycardia Miscellaneous Information (Remove Patch) 1 ea TRDERM Q72H PRN PRN Reason: PATCH REMOVAL NEEDED Multivitamins (Thera) 1 each PO DAILY [facility] Last Admin: 01/13/17 08:11 Dose: 1 each Nicotine (Habitrol) 21 mg TRDERM DAILY [facility] Last Admin: 01/13/17 08:10 Dose: 21 mg Ondansetron HCl (Zofran) 4 mg IV Q6H PRN PRN Reason: Nausea/Vomiting Last Admin: 01/11/17 20:03 Dose: 4 mg Polyethylene Glycol (Miralax) 17 gm PO DAILY PRN PRN Reason: Constipation Potassium Chloride (Potassium Chloride) 40 meq PO BID [facility] Stop: 01/12/17 09:01 Last Admin: 01/12/17 08:50 Dose: 40 meq Prenat Multivit/Saks/Iron/Folic Ac ( Plus Iron) 1 each PO DAILY [facility] Last Admin: 01/09/17 12:06 Dose: 1 each Quetiapine Fumarate (Seroquel) 25 mg PO BEDTIME [facility] Quetiapine Fumarate (Seroquel) 25 mg PO BEDTIME [facility] Last Admin: 01/09/17 20:01 Dose: Not Given Quetiapine Fumarate (Seroquel) 25 mg PO BID [facility] Last Admin: 01/13/17 08:11 Dose: 25 mg Quetiapine Fumarate (Seroquel) 100 mg PO BEDTIME [facility] Last Admin: 01/12/17 21:08 Dose: 100 mg Scopolamine (Transderm-Scop) 1.5 mg TRDERM Q72H PRN PRN Reason: Nausea/Vomiting Last Admin: 01/10/17 18:22 Dose: 1.5 mg Senna/Docusate Sodium (Senna Plus) 1 tab PO BID PRN PRN Reason: Constipation Sertraline HCl (Zoloft) 50 mg PO DAILY [facility] Last Admin: 01/13/17 08:11 Dose: 50 mg Thiamine HCl (Vitamin B-1) 100 mg PO DAILY [facility] Last Admin: 01/13/17 08:11 Dose: 100 mg - Exam Quality Assessment: Reports: DVT prophylaxis General: Reports: alert, oriented, cooperative, no acute distress HEENT: Reports: Pupils equal, Pupils reactive, EOMI Neck: Reports: supple, trachea midline, no JVD Lungs: Reports: Normal respiratory effort Cardiovascular: Reports: Regular Rate, Regular Rhythm Abdomen: Reports: bowel sounds present, soft, no tenderness, no distension (Female) Exam: Deferred Rectal (Female) Exam: Deferred Back Exam: Reports: Normal Inspection Extremities: Reports: normal pulses Skin: Reports: warm, dry, intact Neurological: Reports: no new focal deficit, normal gait, normal speech Psy/Mental Status: Reports: alert, anxious, depressed *Q Meaningful Use (DIS) - VTE *Q VTE Criteria *Q: - Stroke *Q Stroke Criteria *Q: - AMI *Q AMI Criteria *Q:
== END 2017-01-13 16:26 | disposition other institution (70) | DRG 880 ==
LOC: JD.ED 18:03 → JD.ICU 22:23 → OBSVTOIN 22:33 → JD.MS 01-12 19:10
PROVIDERS: ADMIT Internal Medicine; ATTEND Internal Medicine
DX: R44.0 Auditory hallucinations (principal); R45.851 Suicidal ideations; F11.20 Opioid dependence, uncomplicated; F33.2 Major depressive disorder, recurrent severe without psychotic features; F10.20 Alcohol dependence, uncomplicated; F12.20 Cannabis dependence, uncomplicated; F17.200 Nicotine dependence, unspecified, uncomplicated; F29 Unspecified psychosis not due to a substance or known physiological condition; F41.9 Anxiety disorder, unspecified; Z79.899 Other long term (current) drug therapy; Y90.0 Blood alcohol level of less than 20 mg/100 ml
CPT/HCPCS: 36415; 36600; 70450; 70450-26; 80048; 80053; 80306; 80349; 81001; 81025; 82803; 83735; 84443; 85025; 93005; 99223; 99232; 99238; 99285; 99285-25; A9270-GY; G0480; J1200; J1630; J2060; J2405; J3411; J7030; J7040